=== PATIENT | male | born 1965 | race Caucasian/White ===

== ENCOUNTER 2025-03-17 10:29 | Outpatient (CLI) | payer MEDICAID, SELFPAY ==
--- OUTSIDE RECORDS SUMMARY | 2025-03-17 11:28 | XMS_ITS | Encounter Summary ---
Author Organization [facility] Address [address] [place] [address]. [place] [address] Care Team Providers Care Dike Supervisor Name Role Phone No Ref-Primary, Physician Primary Care Provider Reason for Visit * Reason Comments Hallucinations Altered Mental Status Encounter Details Date Type Department Care Team (Late st Contact Info) Description 03/17/2025 11:28 AM CDT - 03/17/2025 11:25 PM CDT [facility] [address] [place] [address] Nahum Duarte MD [address] [place] [id number] John Urias DO [facility] [address] [place] [address] Earnest Rose MD [facility] [address] [place] [id number] Acute psychosis (H); Marijuana use Discharge Disposition: Another Health Care Institution Not Defined Social History Tobacco Use Types Packs/Day Years Used Date Smoking Tobacco: Never Assessed AUDIT-C Answer Date Recorded Q1: How often do you have a drink containing alcohol? Never 03/18/2025 Q2: How many drinks containi ng alcohol do you have on a typical day when you are drinking? Patient does not drink Q3: How often do you have si x or more drinks on one occasion? Never 03/18/2025 Food Insecurity Answer Date Recorded Within the past 12 months, d id you worry that your food would run out before you got money to buy more? No 03/18/2025 Within the past 12 months, d id the food you bought just not last and you didn t have money to get more? No 03/18/2025 Housing Stability Answer Date Recorded Do you have housing? (Norma arteaga is defined as stable permanent housing and does not include staying outside in a car, in a tent, in an abandoned building, in an overnight snf, or couch-surfing.) No 03/18/2025 Are you worried about losing your housing? No 03/18/2025 Financial Resource Strain Answer Date R ecorded Within the past 12 months, h ave you or your family members you live with been unable to get utilities (heat, electricity) when it was really needed? No 03/18/2025 Transportation Needs Answer Date Record ed Within the past 12 months, h as lack of transportation kept you from medical appointments, getting your medicines, non-medical meetings or appointments, work, or from getting things that you need? No 03/18/2025 Interpersonal Safety Answer Date Record ed Do you feel physically and e motionally safe where you currently live? No 03/18/2025 Within the past 12 months, h ave you been hit, slapped, kicked or otherwise physically hurt by someone? No 03/18/2025 Within the past 12 months, h ave you been humiliated or emotionally abused in other ways by your partner or ex-partner? No 03/18/2025 Sex and Gender Information Value Date Recorded Sex Assigned at Not on file Legal Sex Male 12:42 PM CDT Gender Identity Not on file Sexual Orientation Not on file documented as of this encounter Last Filed Vital Signs Vital Sign Reading Time Taken Comments Blood Pressure 143/76 03/17/2025 7:00 PM CDT Pulse 84 03/17/2025 7:00 PM CDT Temperature 36.6 C (97.8 F) 03/17/2025 7:00 PM CDT Respiratory Rate 16 03/17/2025 7:00 PM CDT Oxygen Saturation 96% 03/17/2025 7:00 PM CDT Inhaled Oxygen Concentration - - Weight - - Height - - Body Mass Index - - documented in this encounter Functional Status * Calculated C-SSRS Risk Score (Lifetime/Recent) Answer Date of Assessment Author No Risk Indicated 03/17/2025 2:39 PM CDT David Bautista LMFT * Question Answer Date of Assessment Author Actual Attempt (Past 3 Months) No 03/17/2025 2:39 PM CDT David Ribera REDEVELOPMENT MANAGER Has subject engaged in non-suicidal self-injurious behavior? (Past 3 Months) No 03/17/2025 2:39 PM CDT Pari Ribera REDEVELOPMENT MANAGER Interrupted Attempts (Past 3 Months) No 03/17/2025 2:39 PM CDT David Ribera LMFT Aborted or Self-Interrupted Attempt (Past 3 Months) No 03/17/2025 2:39 PM CDT Socorro Ribera LMFT Preparatory Acts or Behavior (Past 3 Months) No 03/17/2025 2:39 PM CDT David Ribera LMFT * Question Answer Date of Assessment Author Actual Attempt (Lifetime) No 03/17/2025 2:27 PM CDT Dvaid Ribera LMFT Has subject engaged in non-suicidal self-injurious behavior? (Lifetime) No 03/17/2025 2:27 PM CDT Anthony Ribera LMFT Interrupted Attempts (Lifetime) No 03/17/2025 2:27 PM CDT David Ribera LMFT Aborted or Self-Interrupted Attempt (Lifetime) No 03/17/2025 2:27 PM CDT David Ribera LMFT Preparatory Acts or Behavior (Lifetime) No 03/17/2025 2:27 PM CDT David Ribera REDEVELOPMENT MANAGER documented as of this encounter Medications at Time of Discharge lisinopril (PRINIVIL/ZESTRIL) 20 MG tabletIndications:B enign essential hypertension Take 1 tablet (20 mg) by mouth daily 15 tablet 01/14/2018 metoprolol tartrate (LOPRESSOR) 25 MG tablet Take 25 mg by mouth daily. rosuvastatin (CRESTOR) 5 MG tablet Take 5 mg by mouth daily. 11/01/2024 documented as of this encounter Progress Notes * Sun Espinal, ISMAEL - 03/17/2025 11:25 PM CDT POST ED DISCHARGE NOTE 03/18 Received call from Magalie with [facility] (P: [phone]) who shares that she has collateral information on the pt. Informed of transfer to [facility]. She plans to call at [facility] with the information. Sun Espinal/DOUG Leblanc LGSW Inpatient Care Coordination Emergency Room Furniture Servicer/Float [phone] documented in this encounter Consult Notes * David Ribera LMFT - 03/17/2025 1:27 PM CDTAssociated Order(s): DIAGNOSTIC EVALUATION CENTER (DEC) ASSESSMENT ORDER Diagnostic Evaluation Consultation Crisis Assessment Patient Name: Ezekiel Morgan Age: [age] year old Legal Sex: male Gender Identity: male Pronouns: Race: White Ethnicity: Not or Language: Montserratian Patient was assessed: Virtual: Force-A Crisis Assessment Start Date: 03/17/25 Crisis Assessment Start Time: 1327 Crisis Assessment Stop Time: 1356 Patient location: [facility] Emergency Dept ED18 Referral Data and Chief Complaint Ezekiel Morgan presents to the ED via EMS. Patient is presenting to the ED for the following concerns: Paranoia, Significant behavioral change, Substance use, Anxiety, Worsening psychosocial stress. Factors that make the mental health crisis life threatening or complex are: Pt presenting in theER today by EMS due to worsening of paranoia, delusion and auditory hallucination. Pt endorsed paran oia and delusion as he thought Satan was opening the back door and breaking into his parents' home.Pt reported he thought there was satan in his neighbor's garage as he drove his truck into the neighbor's garage and hear God telling him to drive his truck into his neighbor's garage. Pt has no current outpatient mental health service providers. Pt was prescribed and taking his psychiatric medications consistently. However, Pt's psychiatrist told him that he was stable and doing well as he couldwean off on his medications 2 years ago as Pt weaned off.. Informed Consent and Assessment Methods Explained the crisis assessment process, including applicable information disclosures and limits toconfidentiality, assessed understanding of the process, and obtained consent to proceed with the assessment. Assessment methods included conducting a formal interview with patient, review of medical records, collaboration with medical staff, and obtaining relevant collateral information from familyand community providers when available. : done History of the Crisis Pt is a 60 year old White male with history of psychosis and THC use. Pt was brought to the ER today by EMS due to worsening of paranoia, delusion and auditory hallucination. Pt has history of psychiatric hospitalization at [facility] in 2018. Pt was calm, alert, oriented, engaged and michelle ative in his DEC Assessment. Pt remarked, I am not exactly sure, they just took me and brought me here, I was having problems with back door open and thought it might be a ghost. as his reason for visiting the ER today. Pt reported he was living at his parents' house and their back door has been continuously open. Pt said he thought the satan was trying to break into the house. Pt also reportedhe thought there was satan in his neighbor's garage as he drove his truck into the neighbor's garage door earlier today. Then, Pt noted he thought his truck was stolen by satan as he called the police. Pt denied using alcohol but reported using THC 2x daily. Pt denied using other illicit substances. Pt endorsed baseline depression and anxiety symptoms. Pt reported having poor sleep but normal appetite. Pt denied having auditory and visual hallucinations. However, Pt told the ER doctor, that theGod told him to drive his truck into the neighbor's garage door today. Pt denied having suicidal and homicidal ideations. Pt denied having access to firearms, history of SIB and previous suicide attem pt. Brief Psychosocial History Family: Single, Children no Support System: Parent(s) Employment Status: unemployed Source of Income: none Financial Environmental Concerns: unable to afford rent/mortgage, unemployed Current Hobbies: television/movies/videos, social media/computer activities, music Barriers in Personal Life: behavioral concerns, mental health concerns, lack of motivation, emotional concerns Significant Clinical History Current Anxiety Symptoms: anxious Current Depression/Trauma: apathy, sadness, impaired decision making, withdrawl/isolation Current Somatic Symptoms: anxious Current Psychosis/Thought Disturbance: high risk behavior, impulsive, auditory hallucinations Current Eating Symptoms: Chemical Use History: Alcohol: None Benzodiazepines: None Opiates: None Cocaine: None Marijuana: Daily Last Use:: 03/17/25 Other Use: None Past diagnosis: Other (history of acute psychosis.) Family history: No known history of mental health or chemical health concerns Past treatment: Individual therapy, Primary Care, Psychiatric Medication Management, Inpatient Hospitalization Details of most recent treatment: Pt has no recent treatment. Pt reported he has no current outpatient mental health service providers. Other relevant history: Pt shared his parents were and he has one brother. Pt reported he was single, has no children and lived wtih his parents. Pt reported he was unemployed for 15 years. Pt denied having medical conditions and denied history of legal issues. Have there been any medication changes in the past two weeks: patient is not on psychiatric meds Is the patient compliant with medications: Collateral Information Is there collateral information: Yes Collateral information name, relationship, phone number: Leslie Mccray [phone] What happened today: Leslie reported Pt was being paranoid and delusional as he thought someone stole his truck as he called the police. Leslie reported Pt drove his truck to his neighbor's place, then walked back home today. Leslie was not able to verify if Pt actually rammed his truck into channing home's garage door or not. What is different about patient's functioning: Leslie reported Pt has history of psychotic episodeand had psychiatric hospitalization at [facility] in 2018. Leslie reported Pt was prescribed andtaking his psychiatric medications consistently. Leslie reported Pt was stable and doing well as his psychiatrist told him that he could wean off on his medications as Pt weaned off 2 years ago. Leslie reported Pt was sensitive to noise, and did not like being touched. Leslie reported Pt was being more paranoid as he was eating food on a paper plate. What do you think the patient needs: Has patient made comments about wanting to kill themselves/others: no If d/c is recommended, can they take part in safety/aftercare planning: yes Additional collateral information: Leslie was upset about the EMS bring Pt to the [facility] ER as she thought EMS was taking Pt to the [facility]. Leslie reviewed and agreed with psychiatric hospitalization recommendation for Pt. Risk Assessment [place] Suicide Severity Rating Scale Full Clinical Version: Suicidal Ideation Q1 Wish to be (Lifetime): No Q2 Non-Specific Active Suicidal Thoughts (Lifetime): No Q6 Suicide Behavior (Lifetime): no Suicidal Behavior (Lifetime) Actual Attempt (Lifetime): No Has subject engaged in non-suicidal self-injurious behavior? (Lifetime): No Interrupted Attempts (Lifetime): No Aborted or Self-Interrupted Attempt (Lifetime): No Preparatory Acts or Behavior (Lifetime): No [place] Suicide Severity Rating Scale Recent: Suicidal Ideation (Recent) Q1 Wished to be (Past Month): no Q2 Suicidal Thoughts (Past Month): no Level of Risk per Screen: no risks indicated Suicidal Behavior (Recent) Actual Attempt (Past 3 Months): No Has subject engaged in non-suicidal self-injurious behavior? (Past 3 Months): No Interrupted Attempts (Past 3 Months): No Aborted or Self-Interrupted Attempt (Past 3 Months): No Preparatory Acts or Behavior (Past 3 Months): No Environmental or Psychosocial Events: impulsivity/recklessness, unemployment/underemployment, challenging interpersonal relationships, work or task failure, helplessness/hopelessness, other life stressors, neither working nor attending school, recent life events (see comment), social isolation, ongo ing abuse of substances Protective Factors: Protective Factors: lives in a responsibly safe and stable environment, help seeking, able to access care without barriers, constructive use of leisure time, enjoyable activities,resilience Does the patient have thoughts of harming others? Feels Like Hurting Others: no Previous Attempt to Hurt Others: no Current presentation: (Pt had flat affect and was anxious about being in the ER.) Is the patient engaging in sexually inappropriate behavior?: no Does Patient have a known history of aggressive behavior: No Does patient have history of aggression in hospital: None reported. Is the patient engaging in sexually inappropriate behavior? no Mental Status Exam Affect: Constricted Appearance: Appropriate, Disheveled Attention Span/Concentration: Attentive Eye Contact: Variable, Engaged Fund of Knowledge: Appropriate Language /Speech Content: Fluent Language /Speech Volume: Normal Language /Speech Rate/Productions: Normal Recent Memory: Variable Remote Memory: Variable Mood: Anxious, Apathetic Orientation to Person: Yes Orientation to Place: Yes Orientation to Time of Day: Yes Orientation to Date: Yes Situation (Do they understand why they are here?): Yes Psychomotor Behavior: Normal Thought Content: Clear, Paranoia Thought Form: Paranoia, Intact Mini-Cog Assessment Number of Words Recalled: Clock-Drawing Test: Three Item Recall: Mini-Cog Total Score: Medication Psychotropic medications: Medication Orders - Psychiatric (From admission, onward) Start Dose/Rate Route Frequency Ordered Stop 03/17/25 2200 OLANZapine (zyPREXA) tablet 10 mg 10 mg Oral AT BEDTIME 03/17/25 1434 03/17/25 1434 OLANZapine zydis (zyPREXA) ODT tab 10 mg 10 mg Oral 2 TIMES DAILY PRN 03/17/25 1434 Current Care Team Patient Care Team: No Ref-Primary, Physician as PCP - General Diagnosis Patient Active Problem List Diagnosis Code Hypertensive emergency I16.1 Krystyna (H) F30.9 Psychosis (H) F29 Primary Problem This Admission Active Hospital Problems Psychosis (H) Clinical Summary and Substantiation of Recommendations Clinical Substantiation: Pt presenting in the ER today by EMS due to worsening of paranoia, delusion and auditory hallucination. Pt reported he was living at his parents' house and their back door has been continuously open by someone. Pt said he thought the satan or ghost was opening the back door, trying to break into the house. Pt also reported he thought there was satan in his neighbor's garage as he drove his truck into the neighbor's garage door earlier today. Then, Pt noted he thought his truck was stolen by satan as he called the police. Pt denied using alcohol but reported using THC 2x daily. Pt denied using other illicit substances. Pt endorsed baseline depression and anxiety symptoms. Pt reported having poor sleep but normal appetite. Pt denied having auditory and visual hallucinations. However, Pt told the ER doctor, that the God told him to drive his truck into the neighbor's garage door today. Pt denied having suicidal and homicidal ideations. Pt denied having access to firearms, history of SIB and previous suicide attempt. Pt was able to engage in his DEC Safety plan as he felt safe to return home. However, Pt has impaired judgment, daily functioning, and acute psychosis. Pt weaned off on his psychiatric medications 2 years ago and recently his psychosis continue to get worse as he has been decompensating. Pt was appropriate for psychiatric hospitalization for further stabilization, safety assessment, and medication management. Goals for crisis stabilization: Pt being referred to psychiatric hospitalization for further stabilization, safety assessment and medication management. Next steps for Care Team: EC will follow up with Pt to provide further therapeutic support while onboarding. Psych consult order was made for medication review. Treatment Objectives Addressed: rapport building, safety planning, assessing safety, identifying anappropriate aftercare plan, identifying and practicing coping strategies, processing feelings, identifying additional supports Therapeutic Interventions: Engaged in safety planning, Engaged in guided discovery, explored patient's perspectives and helped expand them through socratic dialogue., Coached on coping techniques/relaxation skills to help improve distress tolerance and managing intense emotions. Has a specific means been identified for suicidal/homicide actions: No If yes, describe: Explain action steps toward mitigation: Document completion of mitigation actions: The follow up action still needed prior to discharge: Patient coping skills attempted to reduce the crisis: Disposition Recommended referrals: Individual Therapy, Medication Management, [facility] Comprehensive Assessment Reviewed case and recommendations with attending provider. Attending Name: Nahum Duarte MD Attending concurs with disposition: yes Patient and/or validated legal guardian concurs with disposition: no (Pt wanted to go back home with outpatient psychiatry service.) Final disposition: inpatient mental health Severe psychiatric, behavioral or other comorbid conditions are appropriate for management at inpatient mental health as indicated by at least one of the following: Psychiatric Symptoms, Comorbid substance use disorder, Impaired impulse control, judgement, or insight, Symptoms of impact to function Severe dysfunction in daily living is present as indicated by at least one of the following: Complete inability to maintain any appropriate aspect of personal responsibility in any adult roles, Otherevidence of severe dysfunction Situation and expectations are appropriate for inpatient care: Voluntary treatment at lower level of care is not feasible, Patient management/treatment at lower level of care is not feasible or is inappropriate, Biopsychosocial stresses potentially contributing to clinical presentation (co morbidities) have been assessed and are absent or manageable at proposed level of care Inpatient mental health services are necessary to meet patient needs and at least one of the following: Specific condition related to admission diagnosis is present and judged likely to further improve at proposed level of care, Specific condition related to admission diagnosis is present and judged likely to deteriorate in absence of treatment at proposed level of care Legal status: 72 Hour Hold 72 Hour Hold - Date/Time Initiated: 03/17/251432 72 Hour Hold - Date/Time Ends: 03/21/251432 Assessment Details Total duration spent with the patient: 28 min CPT code(s) utilized: 86896 - Psychotherapy (with patient) - 30 (16-37*) min OG Anderson, Psychotherapist DEC - Triage & Transition Services Callback: [phone] documented in this encounter ED Notes * Sheyla Abel RN - 03/17/2025 9:33 PM CDT Report given to PAOLO Mujica, [facility]. * Sheyla Abel RN - 03/17/2025 7:19 PM CDT Patient ambulated to bathroom unattended, cooperative with staff for VS see flowsheets, flat affectwith one word answers. Dining tray removed from room, patient with no other requests at this time. Continues to sleep in room. * Ivonne Delgado RN - 03/17/2025 6:40 PM CDT Pt ate some of his meal- Still sleeping * Ivonne Delgado RN - 03/17/2025 5:40 PM CDT Pt given meal tray Pt sleeping in room- refusing RN to put B bed rails up- agreeable to 1 only * David Ribera LMFT - 03/17/2025 2:40 PM CDT IP MH Referral Acuity Rating Score (RARS) LMHP complete at referral to IP MH, with DEC; and, daily while awaiting IP MH placement. Call scoreto PPS. CRITERIA SCORING New 72 HH and Involuntary for IP MH (not adolescent) 3/3 Boarding over 24 hours 0/1 Vulnerable adult at least 55+ with multiple co morbidities; or, Patient age 11 or under 1/1 Suicide ideation without relief of precipitating factors 0/1 Current plan for suicide 0/1 Current plan for homicide 0/1 Imminent risk or actual attempt to seriously harm another without relief of factors precipitating the attempt 0/1 Severe dysfunction in daily living (ex: complete neglect for self care, extreme disruption in vegetative function, extreme deterioration in social interactions) 1/1 Recent (last 2 weeks) or current physical aggression in the ED 0/1 Restraints or seclusion episode in ED 0/1 Verbal aggression, agitation, yelling, etc., while in the ED 0/1 Active psychosis with psychomotor agitation or catatonia 0/1 Need for constant or near constant redirection (from leaving, from others, etc). 0/1 Intrusive or disruptive behaviors / TOTAL 6 * Nahum Duarte MD - 03/17/2025 11:48 AM CDT Emergency Department Note History of Present Illness Chief Complaint Hallucinations and Altered Mental Status HPI Ezekiel Morgan is a 60 year old male who presents to the ED for evaluation of delusions. Reportedly police were called to his home as he was concerned that Lanie was trying to get into his house.He says that the back door to the house was left open to multiple occasions and so he presumed thismust be the case. He says that God instructed him to run his car into a neighbor's garage to trap gustavo yo in the garage. As rationale he says I guess Lanie must live there. Police were called out but were not able to corroborate that there was any damage to the neighbor's home. Reportedly the patient's car is missing. The patient did have a prior psychotic episode in 2018 in the context of marijuana use. He says he does use marijuana daily. He denies alcohol use or any other stimulants or meth or drugs. He denies any physical complaints. No headache or chest pain. No abdominal pain. No fever or congestion. No vomiting or diarrhea. He states he is compliant with his home medication regimen for hypertension and hypercholesterol. EMS reportedly gave the patient 5 mg of IM droperidol en route. He now says that he is tired. Independent Historian History taken from EMS. Review of External Notes Prior psychiatry notes reviewed from January 06, 2018. The patient at that time was admitted when he was found to be floridly psychotic. He was using marijuana at that time. Past Medical History Medical History and Problem List Past Medical History: Diagnosis Date Bipolar affective (H) Uncomplicated asthma Medications divalproex sodium extended-release (DEPAKOTE ER) 500 MG 24 hr tablet lisinopril (PRINIVIL/ZESTRIL) 20 MG tablet metoprolol tartrate (LOPRESSOR) 25 MG tablet omeprazole (PRILOSEC) 20 MG CR capsule paliperidone (INVEGA SUSTENNA) 234 MG/1.5ML SUSP Surgical History No past surgical history on file. Physical Exam Patient Vitals for the past 24 hrs: BP Temp Temp src Pulse Resp SpO2 03/17/25 1135 (!) 146/87 98.9 ??F (37.2 ??C) Oral 99 18 97 % Physical Exam Constitutional: General: He is not in acute distress. Appearance: Normal appearance. He is not toxic-appearing. HENT: Head: Atraumatic. Right Ear: External ear normal. Left Ear: External ear normal. Eyes: General: No scleral icterus. Conjunctiva/sclera: Conjunctivae normal. Cardiovascular: Rate and Rhythm: Normal rate and regular rhythm. Heart sounds: Normal heart sounds. Pulmonary: Effort: Pulmonary effort is normal. No respiratory distress. Breath sounds: Normal breath sounds. Abdominal: Palpations: Abdomen is soft. Tenderness: There is no abdominal tenderness. Musculoskeletal: General: No deformity. Cervical back: Neck supple. Skin: General: Skin is warm. Capillary Refill: Capillary refill takes less than 2 seconds. Neurological: General: No focal deficit present. Mental Status: He is alert and oriented to person, place, and time. Comments: Speech is fluent. Gait is normal. Grossly moves all extremities normally. Psychiatric: Comments: Cooperative. Appears delusional with poor insight. Diagnostics Lab Results Labs Ordered and Resulted from Time of ED Arrival to Time of ED Departure COMPREHENSIVE METABOLIC PANEL - Abnormal Result Value Sodium 134 (*) Potassium 3.8 Carbon Dioxide (CO2) 23 Anion Gap 11 Urea Nitrogen 9.5 Creatinine 0.78 GFR Estimate >90 Calcium 9.1 Chloride 100 Glucose 137 (*) Alkaline Phosphatase 88 AST 44 ALT 44 Protein Total 6.8 Albumin 4.1 Bilirubin Total 1.2 URINE DRUG SCREEN PANEL - Abnormal Amphetamines Urine Screen Negative Barbituates Urine Screen Negative Benzodiazepine Urine Screen Negative Cannabinoids Urine Screen Positive (*) Cocaine Urine Screen Negative Fentanyl Qual Urine Screen Negative Opiates Urine Screen Negative PCP Urine Screen Negative CBC WITH PLATELETS AND DIFFERENTIAL - Abnormal WBC Count 11.6 (*) RBC Count 4.82 Hemoglobin 15.3 Hematocrit 44.7 MCV 93 MCH 31.7 MCHC 34.2 RDW 13.3 Platelet Count 280 % Neutrophils 88 % Lymphocytes 7 % Monocytes 5 % Eosinophils 0 % Basophils 0 % Immature Granulocytes 0 NRBCs per 100 WBC 0 Absolute Neutrophils 10.2 (*) Absolute Lymphocytes 0.8 Absolute Monocytes 0.6 Absolute Eosinophils 0.0 Absolute Basophils 0.0 Absolute Immature Granulocytes 0.0 Absolute NRBCs 0.0 ETHANOL LEVEL BLOOD - Normal Ethanol Level Blood <0.01 TSH WITH FREE T4 REFLEX - Normal TSH 1.[address] Head w/o Contrast Final Result IMPRESSION: 1. No evidence of an acute intracranial abnormality. 2. Mild presumed chronic small vessel ischemic change. 3. Mild atrophy. EKG ECG results from 03/17/25 EKG 12-lead, tracing only Value Systolic Blood Pressure Diastolic Blood Pressure Ventricular Rate 85 Atrial Rate 85 AL Interval 152 QRS Duration 88 QT 376 QTc 447 P [place] 64 R AXIS 2 T [place] 39 Interpretation ECG Sinus rhythm with occasional Premature ventricular complexes Cannot rule out Inferior infarct (cited on or before 05-Jan-2018) Abnormal ECG When compared with ECG of 05-Jan-2018 13:20, Premature ventricular complexes are now Present Medical Decision Making / Diagnosis NERY Morgan is a 60 year old male who presents to the ED with delusions. He has poor insight. He believes that he is struggling against ghosts and Satan. He was given droperidol from EMS and is resting comfortably. This point the patient is medically clear. Head CT is negative. Laboratory workup overall reassuring. He is hemodynamically stable with no fever. The patient does not carry diagnosis of schizophrenia or bipolar disorder. It is possible that he may have substance abuse induced psychosis. The patient was seen by DEC. He is on the list for an inpatient bed. He was not willing to stay voluntarily and is on a 72-hour hold. We will search for an inpatient bed which I believe he needs given his command hallucinations stating that he believes God told him to drive a car in her neighbors garage. This does represent a significant risk for harm to himself and especially others. Diagnosis ICD-10-CM 1. Acute psychosis (H) F23 2. Marijuana use F12.90 Nahum Duarte MD 03/17/25 1435 * Ivonne Delgado RN - 03/17/2025 11:36 AM CDT Pt brought in by EMS from He shares with parents. Pt called PD this AM to report lanie is trying to attack him. Pt has found back door open often and attributes that to Satan. Pt stating he slams the back door to cut off their fingers. Pt reporting [facility] to kill lanie. Pt's father reports pt's car is missing and has been for maybe a few days.Father thinks this behavior is stemming from the car going missing. Pt went to [place] x 3 weeks ago froMH assessment- Also 7 years ago for threatening to kill his mom with an [place] 47. Father reports no h/o MH issues or medications. Triage Assessment (Adult) Row Name 03/17/25 1135 Triage Assessment Airway WDL WDL Respiratory WDL Respiratory WDL WDL Skin Circulation/Temperature WDL Skin Circulation/Temperature WDL WDL Cardiac WDL Cardiac WDL WDL Peripheral/Neurovascular WDL Peripheral Neurovascular WDL WDL Cognitive/Neuro/Behavioral WDL Cognitive/Neuro/Behavioral WDL WDL * Edelmira Lehman RN - 03/17/2025 11:28 AM CDT Bed: ED18 Expected date: Expected time: Means of arrival: Comments: [id number] documented in this encounter Miscellaneous Notes * Pharmacy-Admission Medication History - Vinod Llamas RPH - 03/17/2025 3:36 PM CDT Pharmacist Admission Medication History Admission medication history is complete. The information provided in this note is only as accurateas the sources available at the time of the update. Information Source(s): Patient and CareEverywhere/SureScripts via in-person Pertinent Information: Patient reports that he takes metoprolol once daily, it is prescribed as twice daily Changes made to [facility] medication list: Added: Rosuvastatin Deleted: depakote, omeprazole, paliperidone Changed: Metoprolol: twice daily--> once daily Allergies reviewed with patient and updates made in EHR: yes Medication History Completed By: Vinod Llamas RPH 03/17/2025 3:36 PM [facility] Med List Medication Sig Last Dose/Taking lisinopril (PRINIVIL/ZESTRIL) 20 MG tablet Take 1 tablet (20 mg) by mouth daily 03/17/2025 Morning metoprolol tartrate (LOPRESSOR) 25 MG tablet Take 1 tablet (25 mg) by mouth daily 03/17/2025 Morning rosuvastatin (CRESTOR) 5 MG tablet Take 5 mg by mouth daily. 03/17/2025 * Plan of Care - David Ribera LMFT - 03/17/2025 3:32 PM CDT Ezekiel Morgan March 17, 2025 Plan of Care Hand-off Note Patient Recommended Care Path: inpatient mental health Clinical Substantiation: Pt presenting in the ER today by EMS due to worsening of paranoia, delusion and auditory hallucination. Pt reported he was living at his parents' house and their back door has been continuously open by someone. Pt said he thought the satan or ghost was opening the back door, trying to break into the house. Pt also reported he thought there was satan in his neighbor's garage as he drove his truck into the neighbor's garage door earlier today. Then, Pt noted he thought his truck was stolen by satan as he called the police. Pt denied using alcohol but reported using THC 2x daily. Pt denied using other illicit substances. Pt endorsed baseline depression and anxiety symptoms. Pt reported having poor sleep but normal appetite. Pt denied having auditory and visual hallucinations. However, Pt told the ER doctor, that the God told him to drive his truck into the neighbor's garage door today. Pt denied having suicidal and homicidal ideations. Pt denied having access to firearms, history of SIB and previous suicide attempt. Pt was able to engage in his DEC Safety plan as he felt safe to return home. However, Pt was being disruptive out in the community, has impaired judgment, daily functioning, and acute psychosis. Pt weaned off on his psychiatric medications 2 years ago and recently his psychosis continue to get worse as he has been decompensating. Pt was appropriate for psychiatric hospitalization for further stabilization, safety assessment, and medication ma nagement. Goals for crisis stabilization: Pt being referred to psychiatric hospitalization for further stabilization, safety assessment and medication management. Next steps for Care Team: EC will follow up with Pt to provide further therapeutic support while onboarding. Psych consult order was made for medication review. Treatment Objectives Addressed: rapport building, safety planning, assessing safety, identifying anappropriate aftercare plan, identifying and practicing coping strategies, processing feelings, identifying additional supports Therapeutic Interventions: Engaged in safety planning, Engaged in guided discovery, explored patient's perspectives and helped expand them through socratic dialogue., Coached on coping techniques/relaxation skills to help improve distress tolerance and managing intense emotions. Has a specific means been identified for suicidal.homicide actions: No If yes, describe: Explain action steps toward mitigation: Document completion of mitigation action: The follow up action still needed prior to discharge: Patient coping skills attempted to reduce the crisis: watching TV, listening to music, working on computer, Severe psychiatric, behavioral or other comorbid conditions are appropriate for management at inpatient mental health as indicated by at least one of the following: Psychiatric Symptoms, Comorbid substance use disorder, Impaired impulse control, judgement, or insight, Symptoms of impact to function Severe dysfunction in daily living is present as indicated by at least one of the following: Complete inability to maintain any appropriate aspect of personal responsibility in any adult roles, Otherevidence of severe dysfunction Situation and expectations are appropriate for inpatient care: Voluntary treatment at lower level of care is not feasible, Patient management/treatment at lower level of care is not feasible or is inappropriate, Biopsychosocial stresses potentially contributing to clinical presentation (co morbidities) have been assessed and are absent or manageable at proposed level of care Inpatient mental health services are necessary to meet patient needs and at least one of the following: Specific condition related to admission diagnosis is present and judged likely to further improve at proposed level of care, Specific condition related to admission diagnosis is present and judged likely to deteriorate in absence of treatment at proposed level of care Collateral contact information: Leslie Mccray [phone] Legal Status: 72 Hour Hold 72 Hour Hold - Date/Time Initiated: 03/17/251432 72 Hour Hold - Date/Time Ends: 03/21/25 143 Psychiatry Consult: Patient has Psychiatry Consult Order OG Anderson documented in this encounter Plan of Treatment Not on file documented as of this encounter Procedures Procedure Name Priority Date/Time Associated Diagnosis Comments CT HEAD W/O CONTRAST STAT 03/17/2025 12:47 PM CDT EKG 12-LEAD, TRACING ONLY STAT 03/17/2025 12:08 PM CDT CBC WITH PLATELETS AND DIFFERENTIAL STAT 03/17/2025 12:04 PM CDT CBC WITH PLATELETS & DIFFERENTIAL STAT 03/17/2025 12:04 PM CDT TSH WITH FREE T4 REFLEX STAT 03/17/2025 12:04 PM CDT COMPREHENSIVE METABOLIC PANEL STAT 03/17/2025 12:04 PM CDT ETHANOL LEVEL BLOOD STAT 03/17/2025 1 2:04 PM CDT URINE DRUG SCREEN STAT 03/17/2025 11: 51 AM CDT URINE DRUG SCREEN PANEL STAT 03/17/2025 11:51 AM CDT documented in this encounter Results * CT Head w/o Contrast (03/17/2025 12:47 PM CDT) Anatomical Region Laterality Modality Head, SUBRAD CT NEURO, SUBRA D CT NEURO, UMP CT NEURO, RAD CT Computed Tomography 03/17/2025 12:4 7 PM CDT Impressions 03/17/2025 12:56 PM CDT IMPRESSION: 1. No evidence of an acute intracranial abnormality. 2. Mild presumed chronic small vessel ischemic change. 3. Mild atrophy. Narrative 03/17/2025 12:56 PM CDT EXAM: CT HEAD W/O CONTRAST LOCATION: [facility] DATE: 03/17/2025 INDICATION: Confusion. COMPARISON: 01/05/2018. TECHNIQUE: Routine CT Head without IV contrast. Multiplanar reformats. Dose reduction techniques were used. FINDINGS: INTRACRANIAL CONTENTS: No intracranial hemorrhage, extraaxial collection, or mass effect. No CT evidence of acute infarct. Mild presumed chronic small vessel ischemic changes. Mild generalized volume loss. No hydrocephalus. The sella is unremarkable for technique. The cerebellar tonsils are appropriately positioned. VISUALIZED ORBITS/SINUSES/MASTOIDS: No intraorbital abnormality. No paranasal sinus mucosal disease. No middle ear or mastoid effusion. BONES/SOFT TISSUES: No scalp hematoma. No skull fracture. Procedure Note Vaughn Oswald MD - 03/17/2025 EXAM: CT HEAD W/O CONTRAST LOCATION: [facility] DATE: 03/17/2025 INDICATION: Confusion. COMPARISON: 01/05/2018. TECHNIQUE: Routine CT Head without IV contrast. Multiplanar reformats.Dose reduction techniques were used. FINDINGS: INTRACRANIAL CONTENTS: No intracranial hemorrhage, extraaxial collection,or mass effect. No CT evidence of acute infarct. Mild presumed chronicsmall vessel ischemic changes. Mild generalized volume loss. Nohydrocephalus. The sella is unremarkable for technique. The cerebellar tonsils are appropriately positioned. VISUALIZED ORBITS/SINUSES/MASTOIDS: No intraorbital abnormality. Noparanasal sinus mucosal disease. No middle ear or mastoid effusion. BONES/SOFT TISSUES: No scalp hematoma. No skull fracture. IMPRESSION: 1. No evidence of an acute intracranial abnormality. 2. Mild presumed chronic small vessel ischemic change. 3. Mild atrophy. Nahum Duarte MD IMG CT ORDERABLES Final Result * EKG 12-lead, tracing only (03/17/2025 12:08 PM CDT) Systolic Blood Pressure mmHg RADIOLOGY RESULTS Diastolic Blood Pressure mmHg RADIOLOGY RESULTS Ventricular Rate 85 BPM RAD IOLOGY RESULTS Atrial Rate 85 BPM RADIOLOG Y RESULTS AL Interval 152 ms RADIOLOG Y RESULTS QRS Duration 88 ms RADIOLO GY RESULTS QT 376 ms RADIOLOGY RESULTS QTc 447 ms RADIOLOGY RESULTS P [place] 64 degrees RADIOLOGY RESULTS R AXIS 2 degrees RADIOLOGY RESULTS T [place] 39 degrees RADIOLOGY RESULTS Interpretation ECG Sinus rhythm with occasional Premature ventricular complexes Cannot rule out Inferior infarct (cited on or before 05-Jan-2018) Abnormal ECG When compared with ECG of 05-Jan-2018 13:20, Premature ventricular complexes are now Present Unconfirmed report - interpretation of this ECG is computer generated - see medical record for final interpretation Confirmed by - EMERGENCY ROOM, PHYSICIAN ([id number]), content editor Florentino Fernandez ([id number]) on 03/17/2025 3:41:51 PM RADIOLOGY RESULTS 03/17/2025 12:0 8 PM CDT 03/17/2025 3:41 PM CDT Nahum Duarte MD ECG ORDERABLES Edited Result - Final RADIOLOGY RESULTS * (ABNORMAL) CBC with platelets and differential (03/17/2025 12:04 PM CDT) WBC Count 11.6(H) 4.0 - 11.0 10e3/uL 03/17/2025 12:09 PM CDT [facility] RBC Count 4.82 4.40 - 5.90 10e6/uL 03/17/2025 12:09 PM CDT [facility] Hemoglobin 15.3 13.3 - 17.7 g/dL 03/17/2025 12:09 PM CDT [facility] Hematocrit 44.7 40.0 - 53.0 % 03/17/2025 12:09 PM CDT [facility] MCV 93 78 - 100 fL 03/17/2025 12:09 PM CDT [facility] MCH 31.7 26.5 - 33.0 pg 03/17/2025 12:09 PM CDT [facility] MCHC 34.2 31.5 - 36.5 g/dL 03/17/2025 12:09 PM CDT [facility] RDW 13.3 10.0 - 15.0 % 03/17/2025 12:09 PM CDT [facility] Platelet Count 280 150 - 450 10e3/uL 03/17/2025 12:09 PM CDT [facility] % Neutrophils 88 % 03/17/2025 12:09 PM CDT [facility] % Lymphocytes 7 % 03/17/2025 12:09 PM CDT [facility] % Monocytes 5 % 03/17/2025 12:09 PM CDT [facility] % Eosinophils 0 % 03/17/2025 12:09 PM CDT [facility] % Basophils 0 % 03/17/2025 12:09 PM CDT [facility] % Immature Granulocytes 0 % 03/17/2025 12:09 PM CDT [facility] NRBCs per 100 WBC 0 <1 /100 025 12:09 PM CDT [facility] Absolute Neutrophils 10.2(H) 1.6 - 8.3 10e3/uL 03/17/2025 12:09 PM CDT [facility] Absolute Lymphocytes 0.8 0.8 - 5.3 10e3/uL 03/17/2025 12:09 PM CDT [facility] Absolute Monocytes 0.6 0.0 - 1.3 10e3/uL 03/17/2025 12:09 PM CDT [facility] Absolute Eosinophils 0.0 0.0 - 0.7 10e3/uL 03/17/2025 12:09 PM CDT [facility] Absolute Basophils 0.0 0.0 - 0.2 10e3/uL 03/17/2025 12:09 PM CDT [facility] Absolute Immature Granulocytes 0.0 <=0.4 10e3/uL 03/17/2025 12:09 PM CDT [facility] Absolute NRBCs 0.0 10e3/uL 03/17/2025 12:09 PM CDT [facility] Blood STRUCTURE OF RIGHT HAND / Unknown Venipuncture / Unknown 03/17/2025 12:04 PM CDT 03/17/2025 12:07 PM CDT Nahum Duarte MD LAB - BLOOD ORDERABLES Final Result LABORATORY [facility] [address] Lab (1st floor, no room number) [address] * TSH with free T4 reflex (03/17/2025 12:04 PM CDT) TSH 1.27 0.30 - 4.20 uIU/mL 03/17/2025 12:35 PM CDT LABORATORY Blood STRUCTURE OF RIGHT HAND / Unknown Venipuncture / Unknown 03/17/2025 12:04 PM CDT 03/17/2025 12:07 PM CDT Nahum Duarte MD LAB - BLOOD ORDERABLES Final Result Performing Organization Address City/[facility]/ZIP Co de Phone Number LABORATORY [facility] [address] Lab (1st floor, no room number) [address] * Ethanol Level Blood (03/17/2025 12:04 PM CDT) Ethanol Level Blood <0.01 <=0.01 g/dL 03/17/2025 12:28 PM CDT LABORATORY Blood STRUCTURE OF RIGHT HAND / Unknown Venipuncture / Unknown 03/17/2025 12:04 PM CDT 03/17/2025 12:07 PM CDT Nahum Duarte MD LAB - BLOOD ORDERABLES Final Result LABORATORY [facility] [address] Lab (1st floor, no room number) [address] * (ABNORMAL) Comprehensive metabolic panel (03/17/2025 12:04 PM CDT) Sodium 134(L) 135 - 145 mmol/L 03/17/2025 12:28 PM CDT LABORATORY Potassium 3.8 3.4 - 5.3 mmol/L 03/17/2025 12:28 PM CDT LABORATORY Carbon Dioxide (CO2) 23 22 - 29 mmol/L 03/17/2025 12:28 PM CDT LABORATORY Anion Gap 11 7 - 15 mmol/L 03/17/2025 12:28 PM CDT LABORATORY Urea Nitrogen 9.5 6.0 - 20.0 mg/dL 03/17/2025 12:28 PM CDT LABORATORY Creatinine 0.78 0.67 - 1.17 mg/dL 03/17/2025 12:28 PM CDT LABORATORY GFR Estimate >90 >60 mL/min/1.7 3m2 03/17/2025 12:28 PM CDT LABORATORY Comment:eGFR calculated usin 2020 CKD-EPI equation. Calcium 9.1 8.8 - 10.4 mg/dL 03/17/2025 12:28 PM CDT LABORATORY Chloride 100 98 - 107 mmol/L 03/17/2025 12:28 PM CDT LABORATORY Glucose 137(H) 70 - 99 mg/dL 03/17/2025 12:28 PM CDT LABORATORY Alkaline Phosphatase 88 40 - 150 U/L 03/17/2025 12:28 PM CDT LABORATORY AST 44 0 - 45 U/L 03/17/2025 12:28 PM CDT LABORATORY ALT 44 0 - 70 U/L 03/17/2025 12:28 PM CDT LABORATORY Protein Total 6.8 6.4 - 8.3 g/dL 03/17/2025 12:28 PM CDT LABORATORY Albumin 4.1 3.5 - 5.2 g/dL 03/17/2025 12:28 PM CDT LABORATORY Bilirubin Total 1.2 <=1.2 mg/dL 03/17/2025 12:28 PM CDT LABORATORY Blood STRUCTURE OF RIGHT HAND / Unknown Venipuncture / Unknown 03/17/2025 12:04 PM CDT 03/17/2025 12:07 PM CDT us Nahum Duarte MD LAB - BLOOD ORDERABLES Final Result LABORATORY [facility] [address] Lab (1st floor, no room number) [place] [address], [facility] * (ABNORMAL) Urine Drug Screen Panel (03/17/2025 11:51 AM CDT) Amphetamines Urine Screen Negative Screen Negative 03/17/2025 12:39 PM CDT [facility] Comment:Cutoff for a negativ e amphetamine is less than 500 ng/mL. Barbituates Urine Screen Negative Screen Negative 03/17/2025 12:39 PM CDT [facility] Comment:Cutoff for a negativ e barbiturate is less than 200 ng/mL. Benzodiazepine Urine Screen Negative Screen Negative 03/17/2025 12:39 PM CDT [facility] Comment:Cutoff for a negativ e benzodiazepine is less than 100 ng/mL. Cannabinoids Urine Screen Positive(A) Screen Negative 03/17/2025 12:39 PM CDT [facility] Comment: Cutoff for a positive cannabinoid is 50 ng/mL or greater. This is an unconfirmed screening result to be used for medical purposes only. Cocaine Urine Screen Negative Screen Negative 03/17/2025 12:39 PM CDT [facility] Comment:Cutoff for a negativ e cocaine is less than 300 ng/mL. Fentanyl Qual Urine Screen Negative Screen Negative 03/17/2025 12:39 PM CDT [facility] Comment:Cutoff for negative fentanyl is less than 5 ng/mL. Opiates Urine Screen Negative Screen Negative 03/17/2025 12:39 PM CDT [facility] Comment:Cutoff for a negativ e opiate is less than 300 ng/mL. PCP Urine Screen Negative Screen Negative 03/17/2025 12:39 PM CDT [facility] Comment:Cutoff for a negativ e PCP is less than 25 ng/mL. Urine URINE SPECIMEN OBTAINED BY CLEAN CATCH PROCEDURE / Unknown Non-blood Collection / Unknown 03/17/2025 11:51 AM CDT 03/17/2025 11:56 AM CDT us Nahum Duarte MD LAB - URINE ORDERABLES Final Result [facility] [address] Lab (1st floor, no room number) [place] [address], [facility] documented in this encounter Visit Diagnoses Diagnosis Acute psychosis (H) Unspecified psychosis Marijuana use Cannabis abuse, unspecified Psychosis (H) Unspecified psychosis documented in this encounter Administered Medications Inactive Administered Medications - up to 3 most recent administrations Medication Order MAR Action Action Date Dose Rate Site OLANZapine (zyPREXA) tablet 10 mg 10 mg, Oral, AT BEDTIME, First dose on Thu03/17/25 at 2200, Combined IM and PO doses may significantly increase the risk of orthostatic hypotension at 30 mg per day or higher. OLANZapine zydis (zyPREXA) ODT tab 10 mg 10 mg, Oral, 2 TIMES DAILY PRN, agitation, Starting on Thu03/17/25 at 1434, Not to exceed 30 mg in 24 hours. Doses should be at least 2 hours apart. Olanzapine to be used first line for agitation, unless otherwise specified. With dry hands, peel back foil backing and gently remove tablet. Do not push oral disintegrating tablet through foil backing. Administer immediately on tongue and oral disintegrating tablet dissolves in seconds, then swallow with saliva. Liquid not required. documented in this encounter Active and Recently Administered Medications Times are shown in CDT. Scheduled Medication Order 03/15/2025 03/16/2025 03/17/2025 OLANZapine (zyPREXA) tablet 10 mg 10 mg, Oral, AT BEDTIME, First dose on Thu03/17/25 at 2200, Combined IM and PO doses may significantly increase the risk of orthostatic hypotension at 30 mg per day or higher. 2116 (Vaccine Refuse d - Provider: Sheyla Abel RN - Comment: Pt refused) PRN Medication Order 03/15/2025 03/16/2025 03/17/2025 OLANZapine zydis (zyPREXA) ODT tab 10 mg 10 mg, Oral, 2 TIMES DAILY PRN, agitation, Starting on Thu03/17/25 at 1434, Not to exceed 30 mg in 24 hours. Doses should be at least 2 hours apart. Olanzapine to be used first line for agitation, unless otherwise specified. With dry hands, peel back foil backing and gently remove tablet. Do not push oral disintegrating tablet through foil backing. Administer immediately on tongue and oral disintegrating tablet dissolves in seconds, then swallow with saliva. Liquid not required. documented in this encounter Care Teams Dike Supervisor Relationship Specialty Start Date End Date No Ref-Primary, Physician PCP - General 01/05/18 documented as of this encounter
--- OUTSIDE RECORDS SUMMARY | 2025-03-17 11:28 | XMS_ITS | Encounter Summary ---
Author Organization [facility] Address [address] [place] [address]. [place] [address] Care Team Providers Care Embedded Software Engineer Name Role Phone No Ref-Primary, Physician Primary Care Provider Reason for Visit * Reason Comments Hallucinations Altered Mental Status Encounter Details Date Type Department Care Team (Late st Contact Info) Description 03/17/2025 11:28 AM CDT - 03/17/2025 11:25 PM CDT [facility] Emergency Dept [address] [place] [address] Nahum Duarte MD [address] [place] [id number] John Urias DO [facility] [address] [place] [address] Earnest Rose MD [facility] [address] [place] [id number] Acute psychosis (H); Marijuana use Discharge Disposition: [...] in an abandoned building, in an overnight nursing home, or couch-surfing.) No 03/18/2025 Are you worried [...] No 03/17/2025 2:39 PM CDT David Ribera ESTABLISHMENT GUIDE Has subject engaged in non-suicidal self-injurious behavior? (Past 3 Months) No 03/17/2025 2:39 PM CDT Pari Ribera ESTABLISHMENT GUIDE Interrupted Attempts (Past 3 Months) No 03/17/2025 2:39 PM CDT David Ribera LMFT Aborted or Self-Interrupted Attempt (Past 3 Months) No 03/17/2025 2:39 PM CDT Socorro Ribera LMFT Preparatory Acts or Behavior (Past 3 Months) No 03/17/2025 2:39 PM CDT David Ribera LMFT * Question Answer Date of Assessment Author Actual Attempt (Lifetime) No 03/17/2025 2:27 PM CDT David Ribera LMFT Has subject engaged in non-suicidal self-injurious behavior? (Lifetime) No 03/17/2025 2:27 PM CDT Anthony Ribera LMFT Interrupted Attempts (Lifetime) No 03/17/2025 2:27 PM CDT David Ribera LMFT Aborted or Self-Interrupted Attempt (Lifetime) No 03/17/2025 2:27 PM CDT David Ribera LMFT Preparatory Acts or Behavior (Lifetime) No 03/17/2025 2:27 PM CDT David Ribera ESTABLISHMENT GUIDE documented as of this encounter Medications at [...] NOTE 03/18 Received call from Magalie with [facility] (P: [phone]) who shares that she has collateral information on the pt. Informed of transfer to [place]. She plans to call at [place] with the information. Sun Espinal/DOUG Leblanc LGSW Inpatient Care Coordination Emergency Room Motor Tune Up Specialist/Float [phone] documented in this encounter Consult Notes * David Ribera LMFT - 03/17/2025 1:27 PM CDTAssociated Order(s): DIAGNOSTIC EVALUATION CENTER (DEC) ASSESSMENT ORDER Diagnostic Evaluation Consultation Crisis Assessment Patient Name: Ezekiel Morgan Age: [age] year old Legal Sex: male Gender Identity: male Pronouns: Race: White Ethnicity: Not or Language: Honduran Patient was assessed: Virtual: OpenPortal Crisis Assessment Start Date: 03/17/25 Crisis Assessment Start Time: 1327 Crisis Assessment Stop Time: 1356 Patient location: [facility] Emergency Dept ED18 Referral Data and [...] Pt has history of psychiatric hospitalization at [facility] in 2018. Pt was calm, alert, [...] information name, relationship, phone number: Leslie Mccray [phone] What happened today: Leslie reported Pt was being paranoid and delusional as he thought someone stole his truck as he called the police. Leslie reported Pt drove his truck to his neighbor's place, then walked back home today. Leslie was not able to verify if Pt actually rammed his truck into [facility]'s garage door or not. What is different about patient's functioning: Leslie reported Pt has history of psychotic episodeand had psychiatric hospitalization at [facility] in 2018. Leslie reported Pt was prescribed [...] about the EMS bring Pt to the [facility] ER as she thought EMS was taking Pt to the [facility]. Leslie reviewed and agreed with psychiatric hospitalization recommendation for Pt. Risk Assessment Campbell Suicide Severity Rating Scale Full Clinical Version: Suicidal Ideation Q1 Wish to be (Lifetime): No Q2 Non-Specific Active Suicidal Thoughts (Lifetime): No Q6 Suicide Behavior (Lifetime): no Suicidal Behavior (Lifetime) Actual Attempt (Lifetime): No Has subject engaged in non-suicidal self-injurious behavior? (Lifetime): No Interrupted Attempts (Lifetime): No Aborted or Self-Interrupted Attempt (Lifetime): No Preparatory Acts or Behavior (Lifetime): No Campbell Suicide Severity Rating Scale Recent: Suicidal Ideation [...] the patient: 28 min CPT code(s) utilized: 86806 - Psychotherapy (with patient) - 30 (16-37*) min OG Anderson, Psychotherapist DEC - Triage & Transition Services Callback: [phone] documented in this encounter ED Notes * Sheyla Abel RN - 03/17/2025 9:33 PM CDT Report given to PAOLO Mujica, [facility]. * Sheyla Abel RN - 03/17/2025 7:19 [...] Pressure Ventricular Rate 85 Atrial Rate 85 OK Interval 152 QRS Duration 88 QT 376 QTc 447 P [place] 64 R AXIS 2 T [place] 39 Interpretation ECG Sinus rhythm with occasional [...] reporting [facility] other [facility] to kill lanie. Pt's father reports pt's car is missing and has been for maybe a few days.Father thinks this behavior is stemming from the car going missing. Pt went to [place] x 3 weeks ago froMH assessment- Also [...] prescribed as twice daily Changes made to PROSTHETICS ASSISTANT medication list: Added: Rosuvastatin Deleted: depakote, omeprazole, paliperidone Changed: Metoprolol: twice daily--> once daily Allergies reviewed with patient and updates made in EHR: yes Medication History Completed By: Vinod Llamas RPH 03/17/2025 3:36 PM PROSTHETICS ASSISTANT Med List Medication Sig Last Dose/Taking lisinopril [...] of care Collateral contact information: Leslie Mccray [phone] Legal Status: 72 Hour Hold 72 Hour [...] CDT EXAM: CT HEAD W/O CONTRAST LOCATION: [facility] DATE: 03/17/2025 INDICATION: Confusion. COMPARISON: 01/05/2018. [...] 03/17/2025 EXAM: CT HEAD W/O CONTRAST LOCATION: [facility] DATE: 03/17/2025 INDICATION: Confusion. COMPARISON: 01/05/2018. [...] Atrial Rate 85 BPM RADIOLOG Y RESULTS OK Interval 152 ms RADIOLOG Y RESULTS QRS Duration 88 ms RADIOLO GY RESULTS QT 376 ms RADIOLOGY RESULTS QTc 447 ms RADIOLOGY RESULTS P [place] 64 degrees RADIOLOGY RESULTS R AXIS 2 degrees RADIOLOGY RESULTS T [place] 39 degrees RADIOLOGY RESULTS Interpretation ECG Sinus rhythm with occasional Premature ventricular complexes Cannot rule out Inferior infarct (cited on or before 05-Jan-2018) Abnormal ECG When compared with ECG of 05-Jan-2018 13:20, Premature ventricular complexes are now Present Unconfirmed report - interpretation of this ECG is computer generated - see medical record for final interpretation Confirmed by - EMERGENCY ROOM, PHYSICIAN ([id number]), editor news Florentino Fernandez ([id number]) on 03/17/2025 3:41:51 PM RADIOLOGY RESULTS 03/17/2025 [...] LAB - BLOOD ORDERABLES Final Result LABORATORY [facility] Acute Care Lab [address] Lab (1st floor, no room number) [address] * TSH with free T4 reflex (03/17/2025 12:04 PM CDT) TSH 1.27 0.30 - 4.20 uIU/mL 03/17/2025 12:35 PM CDT LABORATORY Blood STRUCTURE OF RIGHT HAND / Unknown Venipuncture / Unknown 03/17/2025 12:04 PM CDT 03/17/2025 12:07 PM CDT Nahum Duarte MD LAB - BLOOD ORDERABLES Final Result Performing Organization Address City/[facility]/ZIP Co de Phone Number LABORATORY [facility] Acute Care Lab [address] Lab (1st floor, no room number) [address] * Ethanol Level Blood (03/17/2025 12:04 PM CDT) Ethanol Level Blood <0.01 <=0.01 g/dL 03/17/2025 12:28 PM CDT LABORATORY Blood STRUCTURE OF RIGHT HAND / Unknown Venipuncture / Unknown 03/17/2025 12:04 PM CDT 03/17/2025 12:07 PM CDT Nahum Duarte MD LAB - BLOOD ORDERABLES Final Result LABORATORY [facility] Care Lab [address] Lab (1st floor, no room number) [address] * (ABNORMAL) Comprehensive metabolic panel (03/17/2025 [...] LAB - BLOOD ORDERABLES Final Result LABORATORY [facility] Acute Care Lab [address] Lab (1st floor, no room number) [place] [address], [facility] * (ABNORMAL) Urine Drug Screen Panel (03/17/2025 [...] - URINE ORDERABLES Final Result RH LABORATORY [facility] Acute Care Lab [address] Lab (1st floor, no room number) [place] [address], [facility] documented in this encounter Visit Diagnoses Diagnosis [...] required. documented in this encounter Care Teams Embedded Software Engineer Relationship Specialty Start Date End Date No Ref-Primary, Physician PCP - General 01/05/18 documented as of this encounter
--- OUTSIDE RECORDS SUMMARY | 2025-03-17 23:50 | XMS_ITS | Encounter Summary ---
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 seclusion episode in past 72 hours. 0 Recent (last 7 days) or current verbal aggression, agitation, yelling, etc., while in the ED or unit. 0 Active psychosis. 1 Need for constant or near constant redirection (from leaving, from others, etc). 0 Intrusive or disruptive behaviors. 0 Patient requires 3 or more hours of individualized nursing care per 8-hour shift (i.e. for ADLs, meds, therapeutic interventions). 0 TOTAL 3 * Plan of Care - Rebecca Stacy RN - 03/20/2025 6:33 AM CDT Problem: Sleep Disturbance Goal: Adequate Sleep/Rest Outcome: Progressing Goal Outcome Evaluation: Asleep at start pf shift. 15 minutes safety checks done throughout the shift. Slept for 5.5 hours. * Plan of Care - Nilay Anderson RN - 03/19/2025 8:39 PM CDT Goal Outcome Evaluation: Ezekiel spent most of the shift in the lounge area watching TV with peers. Not social with peers [place] in [place] [facility] [place]. Continues to present as paranoid, disorganized, delusional and grandiose making remarks on how he is the Raine and how money is not a problem with him and he can buy the whole hospital. Denied SI/SIB/AVH/HI as well as anxiety and depression this shift. Appears unkempt and disheveled this shift and shower offered but declined saying he showers only once a week. Reported appetite and sleep as adequate. Was medication compliant and denied any side effects. Staff will continueto monitor and support with current POC. Plan of Care Reviewed With: patient * Plan of Care - Angy Kunz RN - 03/19/2025 11:21 AM CDT Problem: Adult Behavioral Health Plan of Care Goal: Optimized Coping Skills in Response to Life Stressors Intervention: Promote Effective Coping Strategies Recent Flowsheet Documentation Taken 03/19/2025 1100 by Angy Kunz RN Supportive Measures: active listening utilized self-care encouraged self-reflection promoted verbalization of feelings encouraged Goal Outcome Evaluation: Plan of Care Reviewed With: patient Presentation: The patient is observed in the milieu. The patient has a flat and blunted affect. He watches tv, participated in community meeting, does not engage in other unit activities, yet approachable by staff and peers. The patient is dressed in scrubs. Independent with ADL. The patients speech is clear and coherent. Thoughts are paranoid. Mood is calm and cooperative. Mental health symptoms: The patient denies SI, SIB, HI, hallucinations, depression and anxiety. Thepatient states, They said that I am crazy. The patient makes grandiose and delusional statements.The patient states he is the Raine of [place] and is rich. The patient continues to report that he has killed the devil. Medication compliance: The patient is compliant of his medications. Medical Concerns: The patient denies pain and has no medical concerns. PRN's: None Precautions: Suicide Continue with plan of care * Plan of Care - Nilay Anderson RN - 03/19/2025 6:24 AM CDT NOC Shift Report Pt in bed at beginning of shift, breathing quiet and unlabored. Pt slept through shift. Pt slept 6 hours. No pt complaints or concerns at this time. No PRNs given. Will continue to monitor. * Plan of Care - Nilay Anderson RN - 03/18/2025 8:40 PM CDT Goal Outcome Evaluation: Pt was observed resting in bed at the beginning of the shift. Came out for supper and spent the rest of the shift in the lounge area watching TV and movies. Continues to present as paranoid, delusional and grandiose making remarks on how he is the Raine of [place] and how money is not a problem. Denied SI/SIB/AVH/HI as well as anxiety and depression this shift. Appears unkempt and disheveled this shift and shower offered but declined. Reported appetite and sleep as adequate. Was medication compliant and denied any side effects. C/O of SNYDER and requested and received PRN tylenol. Staff will continue to monitor and support with current POC. Plan of Care Reviewed With: patient * Care Plan - Marita Diez OTR - 03/18/2025 7:45 PM CDT Rehab Group Start time: 1649 End time: 1737 Patient time total: 22 minutes attended partial group #6 attended Group Type: occupational therapy Group Topic Covered: balanced lifestyle, cognitive activities, coping skills, healthy leisure time,self-esteem, and social skills Group Session Detail: Skip Jeffy card activity for concentration, tracking, simple reasoning and strategic skills, attention to detail, frustration tolerance, follow through, coping, mood stabilization,reality-based activity, decision making, healthy leisure exploration, an opportunity to experience success and socialization. Patient Response/Contribution: observed only and internally stimulated Patient Detail: Pt joined group late, though declined to join in the activity. Instead, he sat by the window while eating his snack. Pt was noted to be laughing to himself on and off for the whole time he was present while looking out the window. No Charge Patient Active Problem List Diagnosis Hypertensive emergency Denise (H) Psychosis (H) Bipolar 1 disorder, mixed, severe (H) * Care Plan - Marita Diez OTR - 03/18/2025 2:53 PM CDT Rehab Group Start time: 1100 End time: 1145 Patient time total: 30 minutes attended partial group #4 attended Group Type: occupational therapy Group Topic Covered: balanced lifestyle, cognitive activities, coping skills, educational support, emotional regulation, healthy leisure time, substance use/recovery , self-care, self-esteem, and social skills Group Session Detail: Education and group discussion provided on the benefits of positive affirmation practice for wellness with hands on Positive Affirmation Calendar for concentration, follow through, coping, mood stabilization, reality- based activity, changing negative thinking patterns to positive thinking patterns, fostering hope for a sustainable recovery, building self-esteem and confidence, and an opportunity for socialization. Patient Response/Contribution: actively engaged and poor boundaries Patient Detail: Pt joined group late, but was pleasant and worked for the remainder of the time on his project. Pt asked this clinical writer several personal questions, though did accept redirection. 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 Pt often read odd assertions into the positive affirmations that were provided. At times he would ask, What do they really mean by that? Pt was social with often poor boundaries. Pt relayed that he hasn't had his hair cut in over a year, but he cuts his bangs. (Pt is balding and does not have bangs.) [id number] OT Group (2 or more in attendance) Patient Active Problem List Diagnosis Hypertensive emergency Denise (H) Psychosis (H) Bipolar 1 disorder, mixed, severe (H) * Plan of Care - Angy Kunz RN - 03/18/2025 1:29 PM CDT Goal Outcome Evaluation: Plan of Care Reviewed With: patient Admission The patient is admitted to [facility] on a 72 hour hold for risk of self harm and psychosis. The police were called to the patients home. Was told the patient hit the neighbors garage to remove satan. Per AUG assessment. The police said the patients car was not there. The patient lives at home with this parents. The patient is asked to sit down with the clinical writer to complete the admit flowsheet. The patient has aflat and blunted affect. Speech is tangential with a word salad. Mood is anxious and thoughts are delusional. The patient reports to the clinical writer, Cris Shirley knows everything that is going on. Cris Shriley's family owns the [employer]. My neighbor is the [facility]. Cris is upset set because of the noise. There are 6 dogs and 4 goats. I ruined my new car. The brakes when out. I will just settle things with my neighbor by writing a check. I went home and my parents are not my parents. We tried to break the hands off of Satan by slamming doors. There were 32,000 Satan's. God was sleeping because his fax machine was turned off. When asked if he worked. The patient stated, I was mandatory refused from working because I am the raine [facility]. In response to drug use. The patient stated, Mandatory marijuana told by God and Snoop Dog. The patient stated his name comes from being the [facility]'s kid. They changed his name so that he was not identified. The patient is observe in the milieu a majority of the shift. Social with staff and peers. Did not attend group. His appetite is good. Has no scheduled meds. Denies pain and has no medical concerns this shift. The patient was admitted to the unit during the NOC shift. Per reports the patient was given a tourof the unit. During this admission interview, the patient is given a unit folder and patient bill of rights. The patient is encouraged to ask questions. Denies having concerns at this time. Continue to monitor. * Pharmacy-Admission Medication History - Cheryle Tran [facility] - 03/18/2025 7:54 AM CDT Medication history completed on 03/17/2025 at [facility]. Please refer to this note for prior to admission medication information. CHERYLE TRAN Melanie Available on Vocera under unit pharmacist * Plan of Care - Michell Boyer LMFT, [facility] - 03/18/2025 7:42 AM CDT INITIAL PSYCHOSOCIAL ASSESSMENT AND NOTE Information for assessment was obtained from: [x]Patient []Parent []Community provider [x]Hospital records []Other []Guardian Presenting Problem: Patient is a 60 year old male who uses he/him. Patient was admitted to [facility] on 03/17/2025 [facility] on a 72 hour hold placed on 03/17/2025 at 1433. Presenting issues and presentation for admit: Per DEC: Ezekiel Morgan is a 60 year old male who presents to the ED for evaluation of delusions. Reportedly police were called to his home as he was concerned that Lei was trying to get into his house.He says that the back door to the house was left open to multiple occasions and so he presumed thismust be the case. He says that God instructed him to run his car into a neighbor's garage to trap gustavo yo in the garage. As rationale he says I guess Lei must live there. Police were called out [...] home medication regimen for hypertension and hypercholesterol. Interview: Upon meeting with the pt he was pleasant and calm. His thought process was disorganized with delusions and paranoia. 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 He was paranoid about questions that were asked, often turning the questions back to ask clinical writer the same thing. He tells clinical writer that he was given the green light that I'm completely sane from his previous psychiatrist and therefore does not take medications or need to. Pt is a poor historian and due to his delusions it is hard to gauge what is accurate information. The following areas have been assessed: History of Mental Health and Chemical Dependency: Mental Health History: Patient has a historical diagnosis - Psychosis - he had a psychotic episode in 2018. The patient has no history of suicide attempts . Patient has not a history of engaged in non-suicidal self-injury. Previous psychiatric hospitalizations and treatments (including outpatient, residential, and inpatient care: Prior psychotic episode in 2018 in the context of marijuana use. Pt has no current outpatient mental health service providers. Pt was prescribed and taking his psychiatric medications consistently. However, Pt's psychiatrist told him that he was stable and doing well as he could wean off on his medications 2 years ago as Pt weaned off. Substance Use History He says he does use marijuana daily. He denies alcohol use or any other stimulants or meth or drugs. Patient's current relationship status is single. Patient reported having zero child(ramze). Family Description (Constellation, significant information and events, Family Psychiatric History): None reported Significant Medical issues, Life events or Trauma history: Reports having asthma Living Situation: Patient's current living/housing situation is staying with family. They live with their Mother and they report that housing is stable and they are able to return upon discharge. 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 Occupational and Financial Status: Patient is currently unemployed. Patient reports income is obtained through family. Patient does not identify finances as a current stressor. They are insured under [employer] [place]. Restrictions (No/Yes): no Occupational History: currently unemployed and hasn't worked in many years. 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 Legal Concerns (current or past history): Current Concerns: denies Past History: none reported Legal Status: 72 hour hold placed on 03/17/2025 at 1433. Commitment History: none noted Service History: no Ethnic/Cultural/Spiritual considerations: The patient describes their cultural background as White/, heterosexual, male. Contextual influences on patient's health include severity of symptoms and medication adherence concerns. Patient identified their preferred language to be Indonesian. Patient reported they do not need the assistance of an manager eligibility. Spiritual considerations include: none Social Functioning (organizations, interests, support system): In their free time, patient reports they like to lupe with stuff. Patient identified mother as part of their support system. Patient identified the quality of these relationships as good. Current Treatment Providers are: Pt does not have any current providers. Other contact information (family, friends, SO) and NORBERT status: MomLeslie [phone] GOALS FOR HOSPITALIZATION: What do patient want to accomplish during this hospitalization to make things better for the patient.? Patient priorities: The patient reported that what is most important to them is I'll figure it out. They identified return to house as a goal of this hospitalization. Social Service Assessment/Plan: Patient view: Upon discharge, they anticipate needing not much set up for them. Patient will have psychiatric assessment and medication management by the psychiatrist. Medicationswill be reviewed and adjusted per DO/MD/CRYOGENICS ENGINEER GRAIN SACKER as indicated. The treatment team will continue to assess and stabilize the patient's mental health symptoms with the use of medications and therapeutic programming. Hospital staff will provide a safe environment and a therapeutic milieu. Staff will continue to assess patient as needed. Patient will participate in unit groups and activities. Patientwill receive individual and group support on the unit. CTC will do individual inpatient treatment planning and after care planning. CTC will discuss options for increasing community supports with the patient. CTC will coordinate with outpatient providersand will place referrals to ensure appropriate follow up care is in place. * Plan of Care - Mounika Montalvo RN - 03/18/2025 6:35 AM CDT Problem: Adult Behavioral Health Plan of Care Goal: Plan of Care Review Flowsheets (Taken 03/18/2025 0152) Plan of Care Reviewed With: patient Overall Patient Progress: no change Patient Agreement with Plan of Care: agrees Admission Note: Admitted Ezekiel Morgan, a 60 year old male from [facility] around 23:55. Nurse to nurse report was completed on previous shift. Math And Science Instructor received a brief report about this pt from the evening nurse. Pt was alert and oriented. Pleasant and cooperative with the body search by 2 male staff. Brief orientation to the unit was done before he went to his bedroom. Pt preferred to sleep tonight and said he will do the admission interview tomorrow morning. Thus, Admission Profile was not completed. Pt denied pain when asked. He is on a 72 Hour Hold which started yesterday, 03/17/25 at 14:33. Recommendations to Oncoming Staff: Labs (Lipid profile, Hgb A 1 C) will be drawn tomorrow morning. Nursing to do the Admission Profile. Pt appeared to have slept 5 hours this shift. No PRN medications given. * Plan of Care - León Granados - 03/18/2025 1:38 AM CDT 03/18/25 0136 Patient Belongings Did you bring any home meds/supplements to the hospital? No Patient Belongings locker Patient Belongings Put in Hospital Secure Location (Security or Locker, etc.) clothing;wallet Belongings Search Yes Clothing Search Yes Second Staff Kristofer RASCON Comment Envelope # [id number] sent to [employer] Goal Outcome Evaluation: Items kept in storage Pants, Shirt, Wallet, Underwear. Items sent to security [place] Drivers License, [employer] visa, [employer] Visa, [employer] Visa, $11.00 (eleven Dollars), one check #[id number]. Admission Signature Patient Signature Staff Signature 2nd Staff if patient can't sign Discharge Signature All my personal items were returned to me Patient Signature Staff Signature documented in this encounter Plan of Treatment Not on file documented as of this encounter Procedures * The patient is currently admitted. The information in this section might not be complete until the patient is discharged. Procedure Name Priority Date/Time Associated Diagnosis Comments LIPID PROFILE Routine 03/18/2025 7:42 AM CDT HEMOGLOBIN A1C Routine 03/18/2025 7:42 AM CDT documented in this encounter Results * (ABNORMAL) Lipid Profile (03/18/2025 7:42 AM CDT) Cholesterol 121 <200 mg/dL 03/18/2025 9:01 AM CDT [facility] Triglycerides 74 <150 mg/dL 03/18/2025 9:01 AM CDT [facility] Direct Measure HDL 35(L) >=40 mg/dL 2024 9:01 AM CDT [facility] LDL Cholesterol Calculated 71 <100 mg/dL 03/18/2025 9:01 AM CDT [facility] Comment:LDL calculated using the Friedewald equation. Non HDL Cholesterol 86 <130 mg/dL 03/18/2025 9:01 AM CDT [facility] Blood STRUCTURE OF RIGHT HAND / Unknown Venipuncture / Unknown 03/18/2025 7:42 AM CDT 03/18/2025 8:36 AM CDT Narrative [facility] - 03/18/2025 9:01 AM CDT Cholesterol Desirable: < 200 mg/dL Borderline High: 200 - 239 mg/dL High: >= 240 mg/dL Triglycerides Normal: < 150 mg/dL Borderline High: 150 - 199 mg/dL High: 200-499 mg/dL Very High: >= 500 mg/dL Direct Measure HDL Female: >= 50 mg/dL Male: >= 40 mg/dL LDL Cholesterol Desirable: < 100 mg/dL Above Desirable: 100 - 129 mg/dL Borderline High: 130 - 159 mg/dL High: 160 - 189 mg/dL Very High: >= 190 mg/dL Non HDL Cholesterol Desirable: < 130 mg/dL Above Desirable: 130 - 159 mg/dL Borderline High: 160 - 189 mg/dL High: 190 - 219 mg/dL Very High: >= 220 mg/dL Chemo Rosen MD LAB - BLOOD ORDERAB LES Final Result Performing Organization Address [facility]/ZIP Co de Phone Number [facility] Acute Care Lab [facility], Room [address] [id number] * (ABNORMAL) Hemoglobin A1c (03/18/2025 7:42 AM CDT) Estimated Average Glucose 128(H) <117 mg/dL 03/18/2025 8:57 AM CDT [facility] Hemoglobin A1C 6.1(H) <5.7 % 03/18/2025 8:57 AM CDT [facility] Comment: Normal <5.7% Prediabetes 5.7-6.4% Diabetes 6.5% or higher Note: Adopted from ADA consensus guidelines. Blood STRUCTURE OF RIGHT HAND / Unknown Venipuncture / Unknown 03/18/2025 7:42 AM CDT 03/18/2025 8:36 AM CDT Chemo Rosen MD LAB - BLOOD ORDERAB LES Final Result Performing Organization Address City/[facility]/ZIP Co de Phone Number UR [facility] Acute Care Lab [address] [place] [address], Room [address] [id number] documented in this encounter Visit Diagnoses Diagnosis Bipolar 1 disorder, mixed, severe (H) Bipolar I disorder, most recent episode (or current) mixed, severe, without mention of psychotic behavior documented in this encounter Administered Medications Active Administered Medications - up to 3 most recent administrations Medication Order MAR Action Action Date Dose Rate Site acetaminophen (TYLENOL) tablet 650 mg 650 mg, Oral, EVERY 4 HOURS PRN, fever, mild pain, mild to moderate pain and/or fever, Starting on 03/18/25 at 0118, If an NSAID (ibuprofen, naproxen) is also ordered PRN for the same indication, use acetaminophen first, then alternate NSAID with acetaminophen. Maximum acetaminophen dose from all sources = 75 mg/kg/day not to exceed 4 grams/day. $Given 03/20/2025 7:52 AM CDT 650 mg $Given 03/18/2025 5:17 PM CDT 650 mg alum & mag hydroxide-simethicone (MAALOX) suspension 30 mL 30 mL, Oral, EVERY 4 HOURS PRN, indigestion, Starting on 03/18/25 at 0118, Shake well. cloNIDine (CATAPRES) tablet 0.1 mg 0.1 mg, Oral, 2 TIMES DAILY PRN, other, BP >160/90., Starting on 03/18/25 at 1514 $Given 03/20/2025 4:33 PM CDT 0. 1 mg divalproex sodium extended-release (DEPAKOTE ER) 24 hr tablet 500 mg 500 mg, Oral, AT BEDTIME, First dose on 03/18/25 at 2200, DO NOT CRUSH. $Given 03/20/2025 9:57 PM CDT 500 mg $Given 03/19/2025 8:08 PM CDT 500 mg $Given 03/18/2025 9:17 PM CDT 500 mg hydrOXYzine HCl (ATARAX) tablet 25 mg 25 mg, Oral, EVERY 4 HOURS PRN, anxiety, Starting on 03/18/25 at 0118, If multiple medications are ordered PRN anxiety, offer hydrOXYzine at least 30 minutes after the other medication(s), unless otherwise specified. $Given 03/20/2025 4:25 PM CDT 25 mg lisinopril (ZESTRIL) tablet 20 mg 20 mg, Oral, DAILY, First dose on 03/18/25 at 1430 $Given 03/20/2025 7:52 AM CDT 20 mg $Given 03/19/2025 8:10 AM CDT 20 mg $Given 03/18/2025 3:30 PM CDT 20 mg metoprolol tartrate (LOPRESSOR) tablet 25 mg 25 mg, Oral, DAILY, First dose on 03/18/25 at 1430, Tablets can be crushed and given via enteral route. $Given 03/20/2025 7:52 AM CDT 25 mg $Given 03/19/2025 8:10 AM CDT 25 mg $Given 03/18/2025 3:29 PM CDT 25 mg nicotine (NICORETTE) gum 2 mg 2 mg, Buccal, EVERY 1 HOUR PRN, nicotine withdrawal symptoms, Starting on 03/18/25 at 0118, Chew until tingling, then place between cheek and gum. Repeat. Do not swallow. Not to exceed 48 mg in a 24 hour time period. OLANZapine (zyPREXA) injection 10 mg 10 mg, Intramuscular, 3 TIMES DAILY PRN, agitation, if patient unable to take PO., Starting on 03/18/25 at 0118, Doses should be at least 2 hours apart. Olanzapine to be used first line for agitation, unless otherwise specified. At least 1 hour is recommended between administration of IM olanzapine and an IV/IM benzodiazepine to minimize risk of excessive sedation and cardiorespiratory depression. Dissolve the contents of the 10 mg vial using 2.1 mL of Sterile Water for Injection to provide a solution containing 5 mg/mL of olanzapine. Withdraw the ordered dose from vial. Use immediately (within 1 hour) after reconstitution. Discard any unused portion. OLANZapine (zyPREXA) tablet 10 mg 10 mg, Oral, 3 TIMES DAILY PRN, agitation, Starting on 03/18/25 at 0118, Not to exceed 30 mg in 24 hours. Doses should be at least 2 hours apart. Olanzapine to be used first line for agitation, unless otherwise specified. Combined IM and PO doses may significantly increase the risk of orthostatic hypotension at 30 mg per day or higher. paliperidone ER (INVEGA) 24 hr tablet 6 mg 6 mg, Oral, DAILY, First dose (after last modification) on Thu03/21/25 at 0800, DO NOT CRUSH. rosuvastatin (CRESTOR) tablet 5 mg 5 mg, Oral, DAILY, First dose on Thu03/18/25 at 1430 $Given 03/20/2025 7:52 AM CDT 5 mg $Given 03/19/2025 8:10 AM CDT 5 mg $Given 03/18/2025 3:29 PM CDT 5 mg senna-docusate (SENOKOT-S/PERICOLACE) 8.6-50 MG per tablet 1 tablet 1 tablet, Oral, 2 TIMES DAILY PRN, constipation, Starting on 03/18/25 at 0118, Hold for loose stools. traZODone (DESYREL) tablet 50 mg 50 mg, Oral, AT BEDTIME PRN, sleep, may repeat after 60 minutes, Starting on 03/18/25 at 0118, If multiple medications are ordered PRN sleep/insomnia, offer trazodone after the other medication(s), unless otherwise specified. Inactive Administered Medications - up to 3 most recent administrations Medication Order MAR Action Action Date Dose Rate Site paliperidone ER (INVEGA) 24 hr tablet 3 mg 3 mg, Oral, DAILY, First dose on 03/18/25 at 1500, DO NOT CRUSH. $Given 03/20/2025 7:52 AM CDT 3 mg $Given 03/19/2025 8:10 AM CDT 3 mg $Given 03/18/2025 3:29 PM CDT 3 mg documented in this encounter Active and Recently Administered Medications Times are shown in CDT. Scheduled Medication Order 03/19/2025 03/20/2025 03/21/2025 divalproex sodium extended-release (DEPAKOTE ER) 24 hr tablet 500 mg 500 mg, Oral, AT BEDTIME, First dose on 03/18/25 at 2200, DO NOT CRUSH. 2007 ($Given - Provider: Nilay Anderson, PAOLO) 2156 ($Given - Provider: Yahir Jeter RN) 2200 (Due) lisinopril (ZESTRIL) tablet 20 mg 20 mg, Oral, DAILY, First dose on 03/18/25 at 1430 0810 ($Given - Provider: Angy Kunz RN) 0752 ($Given - Provider: Kevin Lopez, PAOLO) 0800 (Due) metoprolol tartrate (LOPRESSOR) tablet 25 mg 25 mg, Oral, DAILY, First dose on 03/18/25 at 1430, Tablets can be crushed and given via enteral route. 0810 ($Given - Provider: Angy Kunz RN) 0752 ($Given - Provider: Kevin Lopez RN) 0800 (Due) paliperidone ER (INVEGA) 24 hr tablet 3 mg (CANCELED) 3 mg, Oral, DAILY, First dose on 03/18/25 at 1500, DO NOT CRUSH. 0810 ($Given - Provider: Angy Kunz RN) 0752 ($Given - Provider: Kevin Lopez RN) paliperidone ER (INVEGA) 24 hr tablet 6 mg 6 mg, Oral, DAILY, First dose (after last modification) on Thu03/21/25 at 0800, DO NOT CRUSH. 0800 (Due) rosuvastatin (CRESTOR) tablet 5 mg 5 mg, Oral, DAILY, First dose on 03/18/25 at 1430 0810 ($Given - Provider: Angy Kunz RN) 0752 ($Given - Provider: Kevin Lopez RN) 0800 (Due) PRN Medication Order 03/19/2025 03/20/2025 03/21/2025 acetaminophen (TYLENOL) tablet 650 mg 650 mg, Oral, EVERY 4 HOURS PRN, fever, mild pain, mild to moderate pain and/or fever, Starting on 03/18/25 at 0118, If an NSAID (ibuprofen, naproxen) is also ordered PRN for the same indication, use acetaminophen first, then alternate NSAID with acetaminophen. Maximum acetaminophen dose from all sources = 75 mg/kg/day not to exceed 4 grams/day. 0752 ($Given - Provider: Kevin Lopez RN) alum & mag hydroxide-simethicone (MAALOX) suspension 30 mL 30 mL, Oral, EVERY 4 HOURS PRN, indigestion, Starting on 03/18/25 at 0118, Shake well. cloNIDine (CATAPRES) tablet 0.1 mg 0.1 mg, Oral, 2 TIMES DAILY PRN, other, BP >160/90., Starting on 03/18/25 at 1514 1633 ($Given - Provider: Yahir Jeter, RN) hydrOXYzine HCl (ATARAX) tablet 25 mg 25 mg, Oral, EVERY 4 HOURS PRN, anxiety, Starting on 03/18/25 at 0118, If multiple medications are ordered PRN anxiety, offer hydrOXYzine at least 30 minutes after the other medication(s), unless otherwise specified. 1625 ($Given - Provider: Yahir Jeter, RN)1714 (Canceled Entry - Provider: Yahir Jeter, RN) nicotine (NICORETTE) gum 2 mg 2 mg, Buccal, EVERY 1 HOUR PRN, nicotine withdrawal symptoms, Starting on 03/18/25 at 0118, Chew until tingling, then place between cheek and gum. Repeat. Do not swallow. Not to exceed 48 mg in a 24 hour time period. OLANZapine (zyPREXA) injection 10 mg(Linked Group 1) 10 mg, Intramuscular, 3 TIMES DAILY PRN, agitation, if patient unable to take PO., Starting on 03/18/25 at 0118, Doses should be at least 2 hours apart. Olanzapine to be used first line for agitation, unless otherwise specified. At least 1 hour is recommended between administration of IM olanzapine and an IV/IM benzodiazepine to minimize risk of excessive sedation and cardiorespiratory depression. Dissolve the contents of the 10 mg vial using 2.1 mL of Sterile Water for Injection to provide a solution containing 5 mg/mL of olanzapine. Withdraw the ordered dose from vial. Use immediately (within 1 hour) after reconstitution. Discard any unused portion. OLANZapine (zyPREXA) tablet 10 mg(Linked Group 1) 10 mg, Oral, 3 TIMES DAILY PRN, agitation, Starting on 03/18/25 at 0118, Not to exceed 30 mg in 24 hours. Doses should be at least 2 hours apart. Olanzapine to be used first line for agitation, unless otherwise specified. Combined IM and PO doses may significantly increase the risk of orthostatic hypotension at 30 mg per day or higher. senna-docusate (SENOKOT-S/PERICOLACE) 8.6-50 MG per tablet 1 tablet 1 tablet, Oral, 2 TIMES DAILY PRN, constipation, Starting on 03/18/25 at 0118, Hold for loose stools. traZODone (DESYREL) tablet 50 mg 50 mg, Oral, AT BEDTIME PRN, sleep, may repeat after 60 minutes, Starting on 03/18/25 at 0118, If multiple medications are ordered PRN sleep/insomnia, offer trazodone after the other medication(s), unless otherwise specified. Linked Groups Order Group 1: OLANZapine (zyPREXA) tablet 10 mgJump to med 10 mg, Oral, 3 TIMES DAILY PRN, agitation, Starting on 03/18/25 at 0118, Not to exceed 30 mg in 24 hours. Doses should be at least 2 hours apart. Olanzapine to be used first line for agitation, unless otherwise specified. Combined IM and PO doses may significantly increase the risk of orthostatic hypotension at 30 mg per day or higher. Or OLANZapine (zyPREXA) injection 10 mgJump to med 10 mg, Intramuscular, 3 TIMES DAILY PRN, agitation, if patient unable to take PO., Starting on 03/18/25 at 0118, Doses should be at least 2 hours apart. Olanzapine to be used first line for agitation, unless otherwise specified. At least 1 hour is recommended between administration of IM olanzapine and an IV/IM benzodiazepine to minimize risk of excessive sedation and cardiorespiratory depression. Dissolve the contents of the 10 mg vial using 2.1 mL of Sterile Water for Injection to provide a solution containing 5 mg/mL of olanzapine. Withdraw the ordered dose from vial. Use immediately (within 1 hour) after reconstitution. Discard any unused portion. documented in this encounter Care Teams [employer] Relationship Specialty Start Date End Date No Ref-Primary, Physician PCP - General 01/05/18 documented as of this encounter
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
--- OUTSIDE RECORDS SUMMARY | 2025-03-20 14:05 | XMS_ITS | Encounter Summary ---
Author Organization [employer] Address [address] [place] [address] Care Team Providers Care Bakery Assistant Name Role Phone No Ref-Primary, Physician Primary Care Provider Encounter Details Date Type Department Care Team (Latest Contact Info) Description 03/17/2025 Travel Social History Tobacco Use Types Packs/Day Years [...] Date Recorded Do you have housing? (Norma g is defined as stable permanent housing and does not include staying outside in a car, in a tent, in an abandoned building, in an overnight alf, or couch-surfing.) No 03/18/2025 Are you worried [...] on file documented as of this encounter Functional Status * Calculated C-SSRS Risk Score (Lifetime/Recent) Answer Date of Assessment Author No Risk Indicated 03/17/2025 2:39 PM CDT David Bautista LMFT * Question Answer Date of Assessment Author Actual Attempt (Past 3 Months) No 03/17/2025 2:39 PM CDT David Ribera LMFT Has subject engaged in non-suicidal self-injurious behavior? (Past 3 Months) No 03/17/2025 2:39 PM CDT Pari Ribera LMFT Interrupted Attempts (Past 3 Months) No 03/17/2025 [...] No 03/17/2025 2:27 PM CDT David Ribera, OG documented as of this encounter Plan of Treatment Not on file documented as of this encounter Visit Diagnoses Not on filedocumented in this encounter Care Teams Bakery Assistant Relationship Specialty Start Date End Date No Ref-Primary, Physician PCP - General 01/05/18 documented as of this encounter
--- OUTSIDE RECORDS SUMMARY | 2025-03-20 14:05 | XMS_ITS | Encounter Summary ---
Author Organization [facility] Address [address] [place], [place] [address] [address] Care Team Providers Care Psychologist Name Role Phone No Ref-Primary, Physician Primary Care Provider Reason for Visit * Reason Onset Date Comments MH/CD Inpatient 03/17/2025 Encounter Details Date Type Department Care Team ([facility] Contact Info) Description 03/17/2025 Telephone [facility] Behavioral Health Intake [address] [place] [id number] Generic, Behavioral Intake, MD MH/CD Inpatient Social History Tobacco Use Types Packs/Day Years [...] Answer Date Recorded Do you have housing? (Housin g is defined as stable permanent housing and does not include staying outside in a car, in a tent, in an abandoned building, in an overnight care home, or couch-surfing.) No 03/18/2025 Are you [...] 03/17/2025 2:27 PM CDT David Ribera LMFT documented as of this encounter Miscellaneous Notes * Telephone Encounter - Maykel Mann - 03/17/2025 5:42 PM CDT R: 5:41 PM Intake paged provider to review for 30/ [facility] 7:14 PM Provider accepted pt to 30/ [facility]. * Telephone Encounter - Arabella Celis - 03/17/2025 3:47 PM CDT R: [facility] Access Inpatient Bed Call Log 03/17/25 at 7:40 AM: Intake has called facilities that have not updated the bed status within the last 12 hours. [facility] is at capacity. [facility] is posting 0 beds. [phone] Per call 8:00am, no beds at this time [facility] is posting 0 beds. Negative covid required. [facility] is posting 2 beds. Neg covid. No high school/Elvia-psych. [phone] Per call 7:58am, low acuity only [facility] is posting 0 beds. [phone] [facility] is posting 0 beds. [phone] [facility] is posting 4 beds. Negative covid. [phone] Per call 7:46am [facility] is posting 0 beds. [facility] ([facility]) is posting 0 beds [phone]. [facility] is posting 2 beds. LOW acuity. Ages 12+. Neg covid. [phone] [facility] has 3 beds posted. No aggression. Negative Covid. Low acuity. [facility] ([place]) is posting 0 beds. Low acuity only. Neg covid. [phone] [facility] is posting 1 bed. Low acuity. No current aggression. [facility] is posting 0 beds. Negative covid. [phone] [facility] ([place]) is posting 0 beds available. Negative covid. [phone]. [facility] is posting 2 beds. Low acuity. 72 HH hold preferred. [place] unit.Negative covid required. [phone] [facility] ([place]) is posting 2 beds. Low acuity only. Neg covid. [phone] [facility] [place] is posting 2 beds. Negative covid required.Vol only, No history of aggression, violence, or assault. No sexual offenders. No 72 HH holds. [phone] [facility] is posting 3 beds. Negative covid required. (Must have the cognitive ability to do programming. No aggressive or violent behavior or recent HX in the last 2 yrs. mustbe primary.) Always low acuity. [facility] has 4 beds posted. Negative covid required. Low acuity only. Violence and aggression capped. [phone] [facility] is posting 2 beds. Low acuity, Negative covid required. [phone] [facility] posting 5 beds. Negative covid required. [phone] [facility] is posting 4 beds. Negative covid. LOW acuity. (No lines, drains, or tubes, oxygen, CPAP, IV, etc.) Must Have a Ride Home. [phone] [facility] is posting 3 beds. Negative covid. (No. lines, drains, or tubes, oxygen, CPAP, IV, etc.) [phone] [facility] is posting 20 beds. No covid test required. [phone] Per call 7:44am, no answer Pt remains on the work list pending appropriate bed availability. 3:[address] 30 CRN with MRN for review as unit is case by case for admissions. Evening RN is still in report, but will be given MRN. * Telephone Encounter - Arabella Celis - 03/17/2025 2:43 PM CDT S: [facility] ED , DEC Records Management Engineer David calling at 2:43 PM about 60 year old/male presenting with worsening paranoia, delusional thinking, and command hallucinations. B: Pt arrived via EMS. Presenting problem, stressors: living at parents home, the back door kept opening- believed that satan/devil was trying to break into the house. Pt affect in ED: Flat Pt Dx: Unspecified Psychosis Previous [facility] hx? Yes: 2018 @ [facility] Pt denies SI Hx of suicide attempt? No Pt denies SIB Pt denies HI Pt endorses auditory hallucinations and endorses command hallucinations- told him to drive truck into neighbors garage, which he did. Pt RARS Score: 6 Hx of aggression/violence, sexual offenses, legal concerns, Epic care plan? describe: No Current concerns for aggression this visit? No Does pt have a history of Civil Commitment? No Is Pt their own guardian? Yes Pt is not prescribed medication. Is patient medication compliant? Has been off of meds for 2 years.Pt was doing well, so under direction of provider, went off meds. Pt denies OP services CD concerns: Actively using/consuming THC Acute or chronic medical concerns: No Does Pt present with specific needs, assistive devices, or exclusionary criteria? None Pt is ambulatory Pt is able to perform ADLs independently A: Pt to be reviewed for [facility] admission. Pt is on a 72HH, initiated 03/17 @ 2:33 PM Preferred placement: Statewide COVID Symptoms: No If yes, COVID test required Utox: Positive for cannabinoids CMP: Abnormalities: sodium: 134; glucose: 137 CBC: Abnormalities: WBC count: 11.6; absolute neutrophils: 10.2 HCG: N/A R: Patient cleared and ready for behavioral bed placement: Yes Pt placed on IP worklist? Yes Does Patient need a Transfer Center request created? Yes, bid writer completed Transfer Center request at: 2:54 PM documented in this encounter Plan of Treatment Not on file documented as of this encounter Visit Diagnoses Not on filedocumented in this encounter Care Teams Psychologist Relationship Specialty Start Date End Date No Ref-Primary, Physician PCP - General 01/05/18 documented as of this encounter
--- OUTSIDE RECORDS SUMMARY | 2025-03-20 14:05 | XMS_ITS | Clinical Summary ---
Author Organization [facility] Address [address] [place] [address]. [place] [address] Care Team Providers Care Linseed Cake Trimmer Name Role Phone No Ref-Primary, Physician Primary Care Provider Allergies Active Allergy Reactions Criticality Noted Date Comments Erythromycin 01/05/2018 Medications omeprazole (PRILOSEC) 20 MG CR capsule Take 20 mg by mouth daily 025 Discontinued (Med Rec(No AVS / No eCancel)) metoprolol tartrate (LOPRESSOR) 25 MG tabletIndication s:Benign essential hypertension Take 1 tablet (25 mg) by mouth 2 times daily 30 tablet 8 025 Discontinued (Med Rec(No AVS / No eCancel)) lisinopril (PRINIVIL/ZESTRI L) 20 MG tabletIndication s:Benign essential hypertension Take 1 tablet (20 mg) by mouth daily 15 tablet 8 Suspended divalproex sodium extended-release (DEPAKOTE ER) 500 MG 24 hr tabletIndication s:Krystyna (H) Take 3 tablets (1,500 mg) by mouth At Bedtime 90 tablet 8 025 Discontinued (Med Rec(No AVS / No eCancel)) paliperidone (INVEGA SUSTENNA) 234 MG/1.5ML SUSPIndications: Krystyna (H) Inject 1.5 mLs (234 mg) into the muscle once for 1 dose 1.5 mL 8 025 Discontinued (Med Rec(No AVS / No eCancel)) rosuvastatin (CRESTOR) 5 MG tablet Take 5 mg by mouth daily. 5 Suspended metoprolol tartrate (LOPRESSOR) 25 MG tablet Take 25 mg by mouth daily. Suspended Active Problems Problem Noted Date Diagnosed Date Bipolar 1 disorder, mixed, severe 03/18/2025 Psychosis 03/17/2025 Krystyna 01/06/2018 Hypertensive emergency 01/05/2018 Encounters Date Type Department Care Team Description 03/17/2025 11:50 PM CDT - Present Hospital Encounter [facility] & Addiction Services [address] [facility] [place] [phone] Christopher Price MD [place], Chemo Franco MD 03/17/2025 11:28 AM CDT - 03/17/2025 11:25 PM CDT Emergency [facility] Emergency Dept [address] [place] [address] Nahum Duarte MD Yeh, Ferris, DO Lindenbaum, Elan, MD Acute psychosis (H); Marijuana use Discharge Disposition: Another Health Care Institution Not Defined 03/17/2025 Telephone [facility] Behavioral Health Intake [address] [place] [phone] Generic, Behavioral Intake, MH/CD Inpatient 03/17/2025 Travel from Last 3 Months Social History Tobacco Use Types Packs/Day Years [...] Answer Date Recorded Do you have housing? (Jackiein g is defined as stable permanent housing and does not include staying outside in a car, in a tent, in an abandoned building, in an overnight mcfp, or couch-surfing.) No 03/18/2025 Are you worried [...] on file Sexual Orientation Not on file Last Filed Vital Signs Vital Sign Reading [...] Mass Index 34.25 03/18/2025 12:00 AM CDT Plan of Treatment Health Maintenance Due Date Last Done Comments ADVANCE CARE PLANNING 1967 ANNUAL REVIEW OF HM ORDERS 1967 CT COLONOGRAPHY 1967 FIT 1967 FLEX SIG 1967 COLONOSCOPY 1977 HEPATITIS B VACCINE (1 of 3 - 19+ 3-dose series) 1986 PNEUMOCOCCAL VACCINE 50+ YEARS (1 of 1 - PCV) 2017 ZOSTER VACCINE (1 of 2) 2017 COVID-19 VACCINE (1 - season) 2024 PHQ-2 (once per calendar year) 2024 INFLUENZA VACCINE (Season Ended) 2025 YEARLY PREVENTIVE VISIT 09/20/2025 09/20/20 24, 09/16/2023, 09/15/2022, Additional history exists BMP 03/17/2026 03/17/2025, 12/21, 01/05/2018 LIPID 03/18/2026 03/18/2025 COLORECTAL CANCER SCREENING 09/24/2026 sDNA (Cologuard) 09/24/2026 09/24/2023, 09/24/2023 DTAP/TDAP/TD VACCINE (2 - Td or Tdap) 02/05/2028 02/04/2018 DIABETES SCREENING 03/18/2028 03/18/2025, 0 03/17/2025, 01/15/2018, Additional history exists HEPATITIS C SCREENING Completed 09/15/2022 HIV SCREENING Completed 09/15/2022 HPV VACCINE Aged Out No longer eligi ble based on patient's age to complete this topic MENINGITIS VACCINE Aged Out No longer eligible based on patient's age to complete this topic Procedures * The patient is currently admitted. The information in this section might not be complete until the patient is discharged. Procedure Name Priority Date/Time Associated Diagnosis Comments LIPID PROFILE Routine 03/18/2025 7:42 AM CDT HEMOGLOBIN A1C Routine 03/18/2025 7:[address] HEAD W/O CONTRAST STAT 03/17/2025 12:47 PM CDT EKG 12-LEAD, TRACING ONLY STAT 03/17/2025 12:08 PM CDT CBC WITH PLATELETS & DIFFERENTIAL STAT 03/17/2025 12:04 PM CDT CBC WITH PLATELETS AND DIFFERENTIAL STAT 03/17/2025 12:04 PM CDT TSH WITH FREE T4 REFLEX STAT 03/17/2025 12:04 PM CDT ETHANOL LEVEL BLOOD STAT 03/17/2025 1 2:04 PM CDT COMPREHENSIVE METABOLIC PANEL STAT 03/17/2025 12:04 PM CDT URINE DRUG SCREEN STAT 03/17/2025 11: 51 AM CDT URINE DRUG SCREEN PANEL STAT 03/17/2025 11:51 AM CDT from Last 3 Months Results * (ABNORMAL) Lipid Profile (03/18/2025 7:42 AM CDT) Pathologist [facility] Cholesterol 121 <200 mg/dL 03/18/2025 9:01 AM [...] ORDERAB LES Final Result Performing Organization Address [facility] de Phone Number UR LABORATORY [facility] [address] [facility], Room [place] [phone] * (ABNORMAL) Hemoglobin A1c (03/18/2025 7:42 AM CDT) Pathologist [facility] Estimated Average Glucose 128(H) <117 mg/dL 03/18/2025 [...] ORDERAB LES Final Result Performing Organization Address [facility] Co de Phone Number UR LABORATORY [facility] [address] [place] [address], Room [address] [phone] * CT Head w/o Contrast (03/17/2025 12:47 [...] CDT EXAM: CT HEAD W/O CONTRAST LOCATION: [facility] DATE: 03/17/2025 INDICATION: Confusion. COMPARISON: 01/05/2018. [...] 03/17/2025 EXAM: CT HEAD W/O CONTRAST LOCATION: [facility] DATE: 03/17/2025 INDICATION: Confusion. COMPARISON: 01/05/2018. [...] Atrial Rate 85 BPM RADIOLOG Y RESULTS TN Interval 152 ms RADIOLOG Y RESULTS QRS Duration 88 ms RADIOLO GY RESULTS QT 376 ms RADIOLOGY RESULTS QTc 447 ms RADIOLOGY RESULTS P [place] 64 degrees RADIOLOGY RESULTS R AXIS 2 degrees RADIOLOGY RESULTS T [place] 39 degrees RADIOLOGY RESULTS Interpretation ECG Sinus rhythm with occasional Premature ventricular complexes Cannot rule out Inferior infarct (cited on or before 05-Jan-2018) Abnormal ECG When compared with ECG of 05-Jan-2018 13:20, Premature ventricular complexes are now Present Unconfirmed report - interpretation of this ECG is computer generated - see medical record for final interpretation Confirmed by - EMERGENCY ROOM, PHYSICIAN ([id number]), editorial project manager Florentino Fernandez ([id number]) on 03/17/2025 3:41:51 PM RADIOLOGY RESULTS 03/17/2025 12:0 8 PM CDT 03/17/2025 3:41 PM CDT us Nahum Duarte MD ECG ORDERABLES Edited Result [...] MD LAB - BLOOD ORDERABLES Final Result RH LABORATORY [facility] [address] Lab (1st floor, no room number) [place] [address], [facility] * TSH with free T4 reflex (03/17/2025 12:04 PM CDT) TSH 1.27 0.30 - 4.20 uIU/mL 03/17/2025 12:35 PM CDT RH LABORATORY Blood STRUCTURE OF RIGHT HAND / Unknown Venipuncture / Unknown 03/17/2025 12:04 PM CDT 03/17/2025 12:07 PM CDT us Nahum Duarte MD LAB - BLOOD ORDERABLES Final Result RH LABORATORY [facility] [address] Lab (1st floor, no room number) [place] [address], [facility] * (ABNORMAL) Comprehensive metabolic panel (03/17/2025 12:04 [...] - 1.17 mg/dL 03/17/2025 12:28 PM CDT RH LABORATORY GFR Estimate >90 >60 mL/min/1.7 3m2 [...] LAB - BLOOD ORDERABLES Final Result LABORATORY [facility] Lab [address] Lab (1st floor, no room number) [place] [phone] * Ethanol Level Blood (03/17/2025 12:04 PM CDT) Ethanol Level Blood <0.01 <=0.01 g/dL 03/17/2025 12:28 PM CDT LABORATORY Blood STRUCTURE OF RIGHT HAND / Unknown Venipuncture / Unknown 03/17/2025 12:04 PM CDT 03/17/2025 12:07 PM CDT Nahum Duarte MD LAB - BLOOD ORDERABLES Final Result LABORATORY [facility] Care Lab [address] Lab (1st floor, no room number) [place] [phone] [place] [address] * (ABNORMAL) Urine Drug Screen Panel (03/17/2025 [...] MD LAB - URINE ORDERABLES Final Result LABORATORY [facility] [address] Lab (1st floor, no room number) [place] [address], [facility] from Last 3 Months Insurance [employer] Advance Directives For more information, please contact: [phone] * Full Code (Latest Code Status on File) Date Activated Date Inactivated Comments 03/18/2025 1:18 AM All basic and advanced life-sustaining interventions are performed as appropriate Psychiatry Question Answer Comments Code status determined by: Other (please lm sheldon) * Full Code Date Activated Date Inactivated Comments 01/06/2018 8:25 PM 01/28/2018 5:39 PM * Full Code Date Activated Date Inactivated Comments 01/06/2018 11:39 AM 01/06/2018 8:25 PM * Full Code Date Activated Date Inactivated Comments 01/05/2018 7:59 PM 01/06/2018 11:39 AM Care Teams Linseed Cake Trimmer Relationship Specialty Start Date End Date No Ref-Primary, Physician PCP - General 01/05/18
--- OUTSIDE RECORDS SUMMARY | 2025-03-21 00:46 | XMS_ITS | Clinical Summary ---
Author Organization [employer] [facility] Address [address] [place] [address] Care Team Providers Care Leasing Representative Name Role Phone MarieRegter DO Primary Care Provide r Allergies Active Allergy Reactions Criticality Noted Date Comments Erythromycin *Unknown High 11/21/2020 Medications metoprolol tartrate (LOPRESSOR) 25 mg tabletIndications:E ssential (primary) hypertension Take 1 Tablet (25 mg) by mouth two times daily. 180 Tablet 2 5 Active rosuvastatin (CRESTOR) 5 mg tabletIndications:M ixed hyperlipidemia Take 1 Tablet (5 mg) by mouth at bedtime. 90 Tablet 2 5 Active lisinopriL (PRINIVIL; ZESTRIL) 20 mg tabletIndications:E ssential (primary) hypertension Take 1 Tablet (20 mg) by mouth once daily. 90 Tablet 2 5 Active Active Problems Problem Noted Date Diagnosed Date Mixed hyperlipidemia 11/30/2019 Schizophrenia, unspecified 07/04/2019 Body mass index (BMI) 32.0-32.9, adult 9 Essential (primary) hypertension 02/22/2018 Immunizations Immunization Administration Dates Next Due Oral Polio Vaccine 06/03/1982 Tdap 02/04/2018 Social History Tobacco Use Types Packs/Day Years Used Date Smoking Tobacco: Former Cigarettes Smokeless Tobacco: Never Tobacco Cessation:Counseling Given: Not Answered Alcohol Use Standard Drinks/Week Comments Not Currently 0 (1 standard drink = 0.6 oz pur e alcohol) PHQ-2 Answer Date Recorded PHQ-2 TOTAL SCORE 0 09/20/2024 Social Connections Answer Date Recorded Do you often feel lonely or isolated from those around you? 0 09/20/2024 Financial Resource Strain Answer Date R ecorded Difficulty of Paying Living Expenses 3 09/20/2024 Difficulty of Paying Living Expenses Not on file 09/20/2024 Food Insecurity Answer Date Recorded Do you worry your food will run out before you are able to buy more? 1 09/20/2024 Transportation Needs Answer Date Record ed Does lack of transportation keep you from medica l appointments? 1 09/20/2024 Does lack of transportation keep you from work, meetings or getting things that you need? 1 09/20/2024 Housing Stability Answer Date Recorded What is your housing situation today? 1 09/20/2024 Utilities Answer Date Recorded Do you have trouble paying f or utilities (for example, heat, electricity, water, phone)? 1 09/20/2024 Sex and Gender Information Value Date Recorded Sex Assigned at Not on file Legal Sex Male 4:48 PM BREWMASTER Gender Identity Not on file Sexual Orientation Not on file Obstetrics History Last Filed Vital Signs Vital Sign Reading Time Taken Comments Blood Pressure 128/86 09/20/2024 11:03 AM BREWMASTER Pulse 72 09/20/2024 11:03 AM BREWMASTER Temperature - - Respiratory Rate - - Oxygen Saturation 96% 09/20/2024 11:03 AM BREWMASTER Inhaled Oxygen Concentration - - Weight 106.6 kg (235 lb) 09/20/2024 11:03 AM BREWMASTER Height 170.2 cm (5' 7) 09/20/2024 11:03 AM BREWMASTER Body Mass Index 36.81 09/20/2024 11:03 AM BREWMASTER Plan of Treatment Health Maintenance Due Date Last Done Comments Hepatitis B series for 19+ ( 1 of 3 - 19+ 3-dose series) 1986 Pneumococcal series for age 50+ (1 of 1 - PCV) 2017 Zoster (shingles) series for age 50+ (1 of 2) 2017 COVID-19 vaccine series ( - season) 2024 Influenza Vaccine (Season Ended) 2025 BMI (ht and wt on same day) for age 18+ 09/20/2025 09/20/2024, 09/16/2023, 09/15/2022, Additional history exists Depression screening for age 12+ 09/20/2025 09/20/2024, 09/17/2023, 09/16/2023, Additional history exists Fecal testing sDNA-FIT ([place] guard) for age 45-75 09/24/2026 09/24/2023 Tetanus booster 02/05/2028 02/04/2018 Lipids for age 45-75 09/20/2029 09/20/2024, 09/16/2023, 09/15/2022, Additional history exists Tdap Completed 02/04/2018 HIV for age 15-65 Completed 09/15/2022 Hepatitis C screening for ag e 18-79 Completed 09/15/2022 Procedures Procedure Name Priority Date/Time Associated Diagnosis Comments LIPID PANEL W REFLEX MEASURED LDL Routine 09/20/2024 11:30 AM BREWMASTER Mixed hyperlipidemia SDNA-FIT EXTERNAL (COLOGUARD) Routine 09/24/2023 7:00 AM BREWMASTER Screening for colon cancer LC HIV-1/O/2, 4TH GENERATION Routine 09/15/2022 11:39 AM BREWMASTER Screening for HIV (human immunodeficiency virus) LC HCV ANTIBODY RFX TO QUANT PCR Routine 09/15/2022 11:39 AM BREWMASTER Need for hepatitis C screening test from Last 3 Months or Most Recently Relevant to Health Maintenance Results * (ABNORMAL) LIPID PANEL W REFLEX MEASURED LDL (09/20/2024 11:30 AM BREWMASTER) CHOLESTEROL, TOTAL 159 <200 mg/dL [facility] HDL CHOLESTEROL 35(L) > OR = 40 mg/dL [facility] TRIGLYCERIDES 138 <150 mg/dL [facility] LDL-CHOLESTEROL 100(H) mg/dL (calc) [facility] Comment: Reference range: <100 Desirable range <100 mg/dL for primary prevention; <70 mg/dL for patients with CHD or diabetic patients with > or = 2 CHD risk factors. LDL-C is now calculated using the Yahir-Pradhan calculation, which is a validated novel method providing better accuracy than the Friedewald equation in the estimation of LDL-C. Yahir SS et al. ESTEFANY. 2013;310(19): 3186-3442 (http://education.setObject/faq/RZQ797) CHOL/HDLC RATIO 4.5 <5.0 (calc) [facility] NON HDL CHOLESTEROL 124 <130 mg/dL (calc) [facility] Comment: For patients with diabetes plus 1 major ASCVD risk factor, treating to a non-HDL-C goal of <100 mg/dL (LDL-C of <70 mg/dL) is considered a therapeutic option. Blood BLOOD SPECIMEN / Unknown 09/20/2024 11:30 AM BREWMASTER 09/20/2024 11:32 AM BREWMASTER Narrative [facility] - 09/21/2024 3:41 AM BREWMASTER FASTING:YES FASTING: YES [facility] CHEMISTRY Final Result [facility] [address] [place] [address], [facility] [address] [place] [address] * SDNA-FIT EXTERNAL (COLOGUARD) (09/24/2023 7:00 AM BREWMASTER) NONINV COLON CA DNA+OCC BLD SCRN STL-IMP Negative Negative 10/06/2023 9:27 AM BREWMASTER [facility] (CLIA #:[id number]) Comment: NEGATIVE TEST RESULT. A negative Cologuard result indicates a low likelihood that a colorectal cancer (CRC) or advanced adenoma (adenomatous polyps with more advanced pre-malignant features) is present. The chance that a person with a negative Cologuard test has a colorectal cancer is less than 1 in 1500 (negative predictive value >99.9%) or has an advanced adenoma is less than 5.3% (negative predictive value 94.7%). These data are based on a prospective cross-sectional study of 10,000 individuals at average risk for colorectal cancer who were screened with both Cologuard and colonoscopy. (Kailey Hartley, N Engl J Med 2014;370(14):1260-0124) The normal value (reference range) for this assay is negative. COLOGUARD RE-SCREENING RECOMMENDATION: Periodic colorectal cancer screening is an important part of preventive healthcare for asymptomatic individuals at average risk for colorectal cancer. Following a negative Cologuard result, the [place] Cancer Society and U.S. Multi-Society Task Force screening guidelines recommend a Cologuard re-screening interval of 3 years. References: [place] Cancer Society Guideline for Colorectal Cancer Screening: https://www.cancer.org/cancer/zrzzz-rxidmj-qcysri/fobtvmuzb-foiktphzr-dxbfbth/ac s-rec ommendations.html.; Al DK, Lonnie SHIN, Jenifer EagleK, Colorectal Cancer Screening: Recommendations for Physicians and Patients from the U.S. Multi-Society Task Force on Colorectal Cancer Screening , Am J Gastroenterology 2017; 112:7691-5105. TEST DESCRIPTION: Composite algorithmic analysis of stool DNA-biomarkers with hemoglobin immunoassay. Quantitative values of individual biomarkers are not reportable and are not associated with individual biomarker result reference ranges. Cologuard is intended for colorectal cancer screening of adults of either sex, 45 years or older, who are at average-risk for colorectal cancer (CRC). Cologuard has been approved for use by the U.S. FDA. The performance of Cologuard was established in a cross sectional study of average-risk adults aged 50-84. Cologuard performance in patients ages 45 to 49 years was estimated by sub-group analysis of near-age groups. Colonoscopies performed for a positive result may find as the most clinically significant lesion: colorectal cancer [4.0%], advanced adenoma (including sessile serrated polyps greater than or equal to 1cm diameter) [20%] or non- advanced adenoma [31%]; or no colorectal neoplasia [45%]. These estimates are derived from a prospective cross-sectional screening study of 10,000 individuals at average risk for colorectal cancer who were screened with both Cologuard and colonoscopy. (Kailey Hartley, N Engl J Med 2014;370(14):2856-0845.) Cologuard may produce a false negative or false positive result (no colorectal cancer or precancerous polyp present at colonoscopy follow up). A negative Cologuard test result does not guarantee the absence of CRC or advanced adenoma (pre-cancer). The current Cologuard screening interval is every 3 years. ([place] Cancer Society and U.S. Multi-Society Task Force). Cologuard performance data in a 10,000 patient pivotal study using colonoscopy as the reference method can be accessed at the following location: www.Seeking Alpha.Ceram Hyd/results. Additional description of the Cologuard test process, warnings and precautions can be found at www.cologuard.com. Stool specimen (specimen) (Rectum) 09/24/2023 7:00 AM BREWMASTER 09/25/2023 1:49 PM BREWMASTER [facility] URINE Final Result Performing Organization Address [facility] Co de Phone Number [facility] (CLIA #:[id number]) [place] [address], * LC HCV ANTIBODY RFX TO QUANT PCR (09/15/2022 11:39 AM BREWMASTER) HCV Ab <0.1 0.0 - 0.9 s/co ratio 09/18/2022 12:07 PM BREWMASTER [facility] ([facility]) Blood BLOOD SPECIMEN / Unknown Venipuncture / Unknown 09/15/2022 11:39 AM BREWMASTER 09/15/2022 11:39 AM BREWMASTER Narrative [facility] ([facility]) - 09/18/2022 12:07 PM BREWMASTER Performed at: [address] [place] [address] [place] [id number] Oral Surgery Assistant: Dinh Mittal MD, Phone: [phone] [facility] LABORATORY Final Result Performing Organization Address City/[facility] Co de Phone Number [facility] ([facility]) [address] [place] [address], * LC HIV-1/O/2, 4TH GENERATION (09/15/2022 11:39 AM BREWMASTER) HIV Scr 4th Gen Non Reactive Non Reactive 09/18/2022 12:07 PM BREWMASTER [facility] ([facility]) Comment: HIV Negative HIV-1/HIV-2 antibodies and HIV-1 p24 antigen were NOT detected. There is no laboratory evidence of HIV infection. Blood BLOOD SPECIMEN / Unknown Venipuncture / Unknown 09/15/2022 11:39 AM BREWMASTER 09/15/2022 11:39 AM BREWMASTER Narrative [facility] - 09/18/2022 12:07 PM BREWMASTER Performed at: [address] [place] [id number] Oral Surgery Assistant: Dinh Mittal MD, Phone: [phone] Reg Salazar DO LABORATORY Final Result Performing Organization Address City/State/[facility] Co de Phone Number [facility] ([facility]ET) [address] [place] [address], from Last 3 Months or Most Recently Relevant to Health Maintenance Insurance [facility] [place] SHARIFA ROBLEDO [id number] Care Teams Leasing Representative Relationship Specialty [place] [address] [place] [address] PCP - General Family Practice 07/03/23
--- OUTSIDE RECORDS SUMMARY | 2025-03-21 00:46 | XMS_ITS | Encounter Summary ---
Author Organization [facility] Address [address] [place] [address] Care Team Providers Care Door Technician Name Role Phone No Ref-Primary, Physician Primary [...] in an abandoned building, in an overnight mcc, or couch-surfing.) No 03/18/2025 Are you worried [...] on filedocumented in this encounter Care Teams Door Technician Relationship Specialty Start Date End Date No Ref-Primary, Physician PCP - General 01/05/18 documented as of this encounter
--- OUTSIDE RECORDS SUMMARY | 2025-03-21 00:46 | XMS_ITS | Encounter Summary ---
Author Organization [facility] Address [address] [place], [place] [address]. [place] [address] Care Team Providers Care Condenser Tester Name Role Phone No Ref-Primary, Physician Primary Care Provider Reason for Visit * Reason Onset Date Comments MH/CD Inpatient 03/17/2025 Encounter Details Date Type Department Care Team ([facility] Contact Info) Description 03/17/2025 Telephone [facility] Behavioral Health Intake [address] [place] [phone] Generic, Behavioral Intake, MD MH/CD Inpatient Social [...] Celis - 03/17/2025 3:47 PM CDT R: [facility] Access Inpatient Bed Call Log 03/17/25 at 7:40 AM: Intake has called facilities that have not updated the bed status within the last 12 hours. [facility] is at capacity. [facility] is posting 0 beds. [phone] Per call 8:00am, no beds at this time [facility] is posting 0 beds. Negative covid required. [facility] is posting 2 beds. Neg covid. No high school/Elvia-psych. [phone] Per call 7:58am, low acuity only [facility] is posting 0 beds. [phone] [facility] is posting 0 beds. [phone] [facility] is posting 4 beds. Negative covid. [phone] Per call 7:46am [facility] is posting 0 beds. [facility] ([facility] is posting 0 beds [phone]. [facility] is posting 2 beds. LOW acuity. Ages 12+. Neg covid. [phone] [facility] has 3 beds posted. No aggression. Negative Covid. Low acuity. [facility] ([place] is posting 0 beds. Low acuity only. Neg covid. [phone] [facility] is posting 1 bed. Low acuity. No current aggression. [facility] is posting 0 beds. Negative covid. [phone] [facility] ([place]) is posting 0 beds available. Negative covid. [phone]. [facility] is posting 2 beds. Low acuity. 72 HH hold preferred. [place]via unit.Negative covid required. [phone] [facility] ([place]) is posting 2 beds. Low acuity only. Neg covid. [phone] [facility] [place] is posting 2 beds. Negative covid required.Vol only, No history of aggression, violence, or assault. No sexual offenders. No 72 HH holds. [phone] [facility] is posting 3 beds. Negative covid required. (Must have the cognitive ability to do programming. No aggressive or violent behavior or recent HX in the last 2 yrs. mustbe primary.) Always low acuity. [facility] has 4 beds posted. Negative covid required. Low acuity only. Violence and aggression capped. [phone] [facility] is posting 2 beds. Low acuity, Negative covid required. [phone] [facility] posting 5 beds. Negative covid required. [phone] [facility] is posting 4 beds. Negative covid. LOW acuity. (No lines, drains, or tubes, oxygen, CPAP, IV, etc.) Must Have a Ride Home. [phone] [facility] is posting 3 beds. Negative covid. (No. lines, drains, or tubes, oxygen, CPAP, IV, etc.) [phone] [facility] is posting 20 beds. No covid test required. [phone] Per call 7:44am, no answer Pt remains on the work list pending appropriate bed availability. 3:[address] 30 CRN with MRN for review as unit is case by case for admissions. Evening RN is still in report, but will be given MRN. * Telephone Encounter - Arabella Celis - 03/17/2025 2:43 PM CDT S: [facility] ED , DEC Manager Investigations David calling at 2:43 PM about 58 [...] independently A: Pt to be reviewed for [facility] admission. Pt is on a 72HH, initiated [...] need a Transfer Center request created? Yes, life underwriter completed Transfer Center request at: 2:54 PM documented in this encounter Plan of Treatment Not on file documented as of this encounter Visit Diagnoses Not on filedocumented in this encounter Care Teams Condenser Tester Relationship Specialty Start Date End Date No Ref-Primary, Physician PCP - General 01/05/18 documented as of this encounter
--- OUTSIDE RECORDS SUMMARY | 2025-03-21 00:47 | XMS_ITS | Clinical Summary ---
Author Organization [facility] Address [address] [place] [address]. [place] [address] Care Team Providers Care Die Stamping Press Operator Name Role Phone No Ref-Primary, Physician Primary [...] 11:50 PM CDT - Present Hospital Encounter [facility] [address] [place] [address] Christopher Price MD Osullivan, Chemo Franco MD 03/17/2025 11:28 AM CDT - 03/17/2025 11:25 PM CDT Emergency [facility] Emergency Dept [address] [place] [address] Nahum Duarte MD Yeh, Ferris, DO Lindenbaum, Elan, MD Acute psychosis (H); Marijuana use Discharge Disposition: Another Health Care Institution Not Defined 03/17/2025 Telephone [facility] Behavioral Health Intake [address] [place] [address] Generic, Behavioral Intake, MH/CD Inpatient 03/17/2025 Travel [...] in an abandoned building, in an overnight senior care, or couch-surfing.) No 03/18/2025 Are you worried [...] Lipid Profile (03/18/2025 7:42 AM CDT) Pathologist [facility] Cholesterol 121 <200 mg/dL 03/18/2025 9:01 AM [...] ORDERAB LES Final Result Performing Organization Address [facility] de Phone Number UR LABORATORY [facility] Acute Care Lab [address] [facility], Room [place] [phone] * (ABNORMAL) Hemoglobin A1c (03/18/2025 7:42 AM CDT) Pathologist [facility] Estimated Average Glucose 128(H) <117 mg/dL 03/18/2025 [...] ORDERAB LES Final Result Performing Organization Address [facility] Co de Phone Number UR LABORATORY [facility] Acute Care Lab [address] [place] [address], Room [address] [phone] * CT Head w/o Contrast (03/17/2025 12:47 [...] CDT EXAM: CT HEAD W/O CONTRAST LOCATION: [facility] DATE: 03/17/2025 INDICATION: Confusion. COMPARISON: 01/05/2018. [...] 03/17/2025 EXAM: CT HEAD W/O CONTRAST LOCATION: [facility] DATE: 03/17/2025 INDICATION: Confusion. COMPARISON: 01/05/2018. [...] Atrial Rate 85 BPM RADIOLOG Y RESULTS [place] Interval 152 ms RADIOLOG Y RESULTS QRS Duration 88 ms RADIOLO GY RESULTS QT 376 ms RADIOLOGY RESULTS QTc 447 ms RADIOLOGY RESULTS P [place] 64 degrees RADIOLOGY RESULTS R AXIS 2 degrees RADIOLOGY RESULTS T [address] 39 degrees RADIOLOGY RESULTS Interpretation ECG Sinus rhythm with occasional Premature ventricular complexes Cannot rule out Inferior infarct (cited on or before 05-Jan-2018) Abnormal ECG When compared with ECG of 05-Jan-2018 13:20, Premature ventricular complexes are now Present Unconfirmed report - interpretation of this ECG is computer generated - see medical record for final interpretation Confirmed by - EMERGENCY ROOM, PHYSICIAN ([id number]), graphics editor Florentino Fernandez ([id number]) on 03/17/2025 3:41:51 PM RADIOLOGY RESULTS 03/17/2025 [...] - BLOOD ORDERABLES Final Result RH LABORATORY [facility] Acute Care Lab [address] Lab (1st floor, no room number) [place] [address], [facility] * TSH with free T4 reflex (03/17/2025 12:04 PM CDT) TSH 1.27 0.30 - 4.20 uIU/mL 03/17/2025 12:35 PM CDT RH LABORATORY Blood STRUCTURE OF RIGHT HAND / Unknown Venipuncture / Unknown 03/17/2025 12:04 PM CDT 03/17/2025 12:07 PM CDT us Nahum Duarte MD LAB - BLOOD ORDERABLES Final Result RH LABORATORY [facility] Acute Care Lab [address] Lab (1st floor, no room number) [place] [address], [facility] * (ABNORMAL) Comprehensive metabolic panel (03/17/2025 12:04 [...] LAB - BLOOD ORDERABLES Final Result LABORATORY [facility] Lab [address] Lab (1st floor, no room number) [place] [phone] * Ethanol Level Blood (03/17/2025 12:04 PM CDT) Ethanol Level Blood <0.01 <=0.01 g/dL 03/17/2025 12:28 PM CDT LABORATORY Blood STRUCTURE OF RIGHT HAND / Unknown Venipuncture / Unknown 03/17/2025 12:04 PM CDT 03/17/2025 12:07 PM CDT Nahum Duarte MD LAB - BLOOD ORDERABLES Final Result LABORATORY [facility] Care Lab [address] Lab (1st floor, no room number) [place] [phone] [place] [address] * (ABNORMAL) Urine Drug Screen Panel (03/17/2025 [...] LAB - URINE ORDERABLES Final Result LABORATORY [facility] Acute Care Lab [address] Lab (1st floor, no room number) [place] [address], [facility] from Last 3 Months Insurance [employer] Advance Directives For more information, please contact: [phone] * Full Code (Latest Code Status on [...] 7:59 PM 01/06/2018 11:39 AM Care Teams Die Stamping Press Operator Relationship Specialty Start Date End Date No Ref-Primary, Physician PCP - General 01/05/18
== END 2025-03-17 10:30 | disposition home or self-care (01) ==
PROVIDERS: Visit Provider Family Medicine
DX: R44.1 Visual hallucinations (principal)
CPT/HCPCS: A0425; A0427